=== PATIENT | female | born 1975 | race Caucasian/White ===

== ENCOUNTER → 2022-09-13 10:35 | Outpatient (BNVA) | payer OTHER, MEDICAID, SELFPAY | PROVIDERS: PCP Internal Medicine; Referring Provider Internal Medicine; Visit Provider Physician Assistant Surgical | DX: Z13.89 Encounter for screening for other disorder (principal) ==

== ENCOUNTER → 2022-10-07 11:02 | Outpatient (BNVA) | payer OTHER, MEDICAID, SELFPAY | PROVIDERS: PCP Internal Medicine; Visit Provider Physician Assistant | DX: Z13.89 Encounter for screening for other disorder (principal) ==

== ENCOUNTER 2022-10-07 12:30 | Outpatient (REF) | payer OTHER, MEDICAID, SELFPAY ==
[2022-10-11 12:14] LABS: H Pylori Breath Test Negative (Negative)
== END 2022-10-07 12:31 | disposition home or self-care (01) ==
LOC: HO.LNP 12:30
PROVIDERS: Visit Provider Physician Assistant
DX: E66.01 Morbid (severe) obesity due to excess calories (principal); J45.909 Unspecified asthma, uncomplicated
CPT/HCPCS: 83013

== ENCOUNTER 2022-10-11 08:20 | Outpatient (REF) | payer OTHER, MEDICAID, SELFPAY ==
--- NOTE | ~2022-10-11 | US_ITS ---
EXAMINATION: US COMPLETE ABDOMEN WITH LIVER ELASTOGRAPHY CLINICAL INFORMATION: Obesity COMPARISON: None available. TECHNIQUE: Real-time imaging of the abdominal viscera. Noninvasive ultrasound liver fibrosis assessment is performed using Penny ElastPQ point quantification shear wave elastography (2D-SWE) with a C5-2 MHz transducer. Multiple elastography samples are obtained. FINDINGS: PANCREAS: Normal. ABDOMINAL AORTA: Limited visualization of the mid and aorta. INFERIOR VENA CAVA: Visualized portions are normal. LIVER: Liver echotexture is slightly increased. The liver is normal in size and contour. No focal lesion or intrahepatic biliary duct dilatation. The right lobe measures 15 cm in length. The left lobe measures 11 cm in length. Portal flow is normal/hepatopedal Shear wave liver elastography median stiffness is 2 m/s (reference: normal median stiffness is 1.3 m/s or less). IQR/median stiffness to assess sampling precision is 0.16 (reference: good quality data set is IQR/median stiffness of 0.15 or less). GALLBLADDER: The gallbladder is normal in size. No gallstones. The gallbladder wall appears slightly thickened and echogenic measuring 4 mm. No gallbladder wall edema. No pericholecystic fluid. COMMON BILE DUCT: Normal in caliber measuring 0.4 cm in diameter. RIGHT KIDNEY: Normal. No hydronephrosis. No renal calculi or focal parenchymal lesions. The kidney measures 12.6 cm in maximum dimension. LEFT KIDNEY: Normal. No hydronephrosis. No renal calculi or focal parenchymal lesions. The kidney measures 12.6 cm in maximum dimension. SPLEEN: Surgically removed FREE FLUID: None. US/US abdomen comp w elastography IMPRESSION: 1. Impression: Slightly echogenic liver. Slightly thickened echogenic gallbladder wall. No gallstones. Post splenectomy. Limited visualization of the aorta. 2. Liver elastography: Limited due to sampling error. Increased liver stiffness suggestive of compensated advanced chronic liver disease but need further test for confirmation. REFERENCE: Society of Radiologists in Ultrasound Liver Stiffness Thresholds (2020): LIVER STIFFNESS THRESHOLDS: *Liver Stiffness equal or less than 1.3 m/s: High probability of being normal. *Liver Stiffness less than 1.7 m/s: In the absence of other known clinical signs, rules out compensated advanced chronic liver disease. *Liver Stiffness 1.7-2.1 m/s: Suggestive of compensated advanced chronic liver disease but need further test for confirmation. *Liver Stiffness over 2.1 m/s: Rules in compensated advanced chronic liver disease. *Liver Stiffness over 2.4 m/s: Suggestive of clinically significant portal hypertension. QUALITY OF DATA SET: *IQR/Median value equal or less than 0.15 implies a quality data set. *IQR/Median value over 0.15 implies a poor quality data set. SIGNIFICANT CHANGE FROM PRIOR EXAM: Significant change if liver stiffness measurement is 10% or greater from prior exam. OTHER CONSIDERATIONS: The stage of liver fibrosis may be overestimated in the setting of acute hepatitis, liver inflammation, elevated liver function tests, hepatic vascular congestion, obstructive cholestasis, non-fasting state, and infiltrative diseases such as amyloidosis and lymphoma. In some patients with NAFLD, the liver stiffness thresholds for compensated advanced chronic liver disease may be lower. In causes other than viral hepatitis and NAFLD, liver stiffness thresholds are not well established.
--- NOTE | ~2022-10-11 | XR_ITS ---
EXAMINATION: XR CHEST CLINICAL INFORMATION: Morbid obesity. COMPARISON: None available. TECHNIQUE: 2 views of the chest were obtained. FINDINGS: Mild diffuse nonspecific interstitial prominence. No focal airspace opacity, pleural effusion or pneumothorax. Normal appearance of the cardiomediastinal silhouette. No acute osseous abnormalities. XR/XR chest 2V IMPRESSION: Mild diffuse interstitial thickening could indicate the presence of small airways disease. No focal airspace opacity.
--- NOTE | ~2022-10-11 | FL_ITS ---
EXAMINATION: XR FLUOROSCOPY UPPER GI WITH AIR CLINICAL INFORMATION: Morbid obesity. COMPARISON: None available. TECHNIQUE: Air-contrast upper GI examination. FINDINGS: There is normal apposition of the vocal cords while saying E. There is normal elevation of the soft palate while saying candy. Patient swallowed thin and thick barium and half-inch diameter barium tablet without difficulty. There is no evidence of nasopharyngeal reflux or tracheal aspiration. No persistent esophageal stricture was identified. No mucosal abnormality is seen. No hiatal hernia was present. There was minimal transient gastroesophageal reflux seen during the study. This could not be reproduced with water siphon test. The stomach demonstrates normal distensibility without abnormal mass lesion or ulceration. There was no delay in gastric emptying. The duodenal bulb and sweep appear unremarkable. FLUOROSCOPY TIME: 1.1 minutes. DOSE AREA PRODUCT: 10.093 Gy-cm2 (jansen-centimeter squared). FL/FL upper GI w air IMPRESSION: Essentially normal air contrast upper GI examination.
--- NOTE | 2022-10-11 08:26 | ECG_ITS ---
Test Reason : e66.0 Blood Pressure : / mmHG Vent. Rate : 071 BPM Atrial Rate : 071 BPM P-R Int : 142 ms QRS Dur : 088 ms QT Int : 398 ms P-R-T Axes : 005 058 008 degrees QTc Int : 432 ms Normal sinus rhythm Normal ECG No previous ECGs available Referred By: Martha Mcwilliams Electronically Signed By:JARVIS BERNARDO MD
[2022-10-11 08:51] LABS: MANUAL DIFF FLAG NO
[2022-10-11 09:18] LABS: Basophils Percent Auto 0.4 % (0-2); Eosinophils Absolute Auto 0.2 X10*3/uL (0.0-0.4); Eosinophils Percent Auto 2.1 % (0-4); Hematocrit 41.3 % (37.0-47.0); Hemoglobin 13.8 g/dl (12.0-16.0); Imm Gran Abs Auto 0.02 X10*3/uL (0.00-0.03); Imm Gran Pct Auto 0.3 % (0.0-0.4); Lymphocytes Absolute Auto 2.5 X10*3/uL (1.2-4.9); Lymphocytes Percent Auto 34.7 % (20-40); Mean Corpuscular HGB Conc 33.4 g/dl (31.0-35.0); Mean Corpuscular Hemoglobin 30.6 pg (27.0-33.0); Mean Corpuscular Volume 91.6 fL (80.0-98.0); Mean Platelet Volume 11.2 fL (9.4-12.3); Monocytes Absolute Auto 0.7 X10*3/uL (0.1-1.2); Monocytes Percent Auto 9.7 % (2-11); Neutrophils Absolute Auto 3.8 x10*3/uL (2.0-8.3); Neutrophils Percent Auto 52.8 % (45-73); Platelet Count 311 X10*3/uL (160-400); Red Blood Count 4.51 X10*6/uL (4.20-5.50); Red Cell Distribution Width 13.4 % (11.0-16.0); White Blood Count 7.2 X10*3/uL (4.8-10.8)
[2022-10-11 09:30] LABS: Estimated Average Glucose 111 mg/dL; Hemoglobin A1c % 5.5 %
[2022-10-11 09:39] LABS: Anion Gap 12 (12-20)
[2022-10-11 09:53] LABS: Alanine Aminotransferase 16 U/L (0-31); Alkaline Phosphatase 56 U/L (39-117); Aspartate Amino Transferase 14 U/L (5-31); Bilirubin Total 0.5 mg/dL (0.0-1.0); Blood Urea Nitrogen 19 mg/dL (9-16); C Reactive Protein 0.58 mg/dL (< or = 0.50); Calcium 10.1 mg/dL (8.4-10.2); Carbon Dioxide 24 mmol/L (22-29); Chloride 107 mmol/L (96-108); Cholesterol 201 mg/dL; Estimated Glomerular Filt Rate > 60; Glucose Random 100 mg/dL (60-115); HDL Cholesterol 64 mg/dL; Iron 104 mcg/dL (30-160); LDL Cholesterol Calculated 124 mg/dl; Percent Iron Saturation 31 % (15-50); Potassium 4.6 mmol/L (3.3-5.1); Sodium 138 mmol/L (135-145); Total Iron Binding Capacity 333 mcg/dL (228-428); Total Protein 7.4 g/dL (6.5-8.0); Triglycerides 67 mg/dL; Unsaturated Iron Binding 229 ug/dL
[2022-10-11 10:32] LABS: Ferritin 86 ng/mL (10-250); Folate 9.1 ng/mL (> or = 4.0); Insulin 8 uU/mL (2-29); TSH reflex Free T4 1.82 uIU/mL (0.32-4.0); Vitamin B12 451 pg/mL (200-900); Vitamin D 25-OH Total 18.1 ng/mL (>30)
[2022-10-14 13:23] LABS: PTHI 116 pg/mL (16-77)
[2022-10-16 01:18] LABS: Zinc 74 mcg/dL (60-130)
[2022-10-17 19:58] LABS: Vitamin A 42 mcg/dL (38-98)
[2022-10-18 17:17] LABS: Vitamin B1 11 nmol/L (8-30)
== END 2022-10-11 08:21 | disposition home or self-care (01) ==
LOC: HO.US 08:20
PROVIDERS: PCP Internal Medicine; Visit Provider Physician Assistant
DX: E66.01 Morbid (severe) obesity due to excess calories (principal); J45.909 Unspecified asthma, uncomplicated
CPT/HCPCS: 36415; 71046; 74246; 76705; 76981; 80053; 80061; 82306; 82607; 82728; 82746; 83036; 83525; 83540; 83970; 84425; 84443; 84590; 84630; 85025; 86140; 93005

== ENCOUNTER → 2022-10-28 10:28 | Outpatient (BNVA) | payer OTHER, MEDICAID, SELFPAY | PROVIDERS: PCP Internal Medicine; Visit Provider Physician Assistant | DX: Z13.89 Encounter for screening for other disorder (principal) ==

== ENCOUNTER → 2022-11-08 09:13 | Outpatient (BNVA) | payer OTHER, MEDICAID, SELFPAY | PROVIDERS: PCP Internal Medicine; Visit Provider Dietitian, Registered | DX: E66.01 Morbid (severe) obesity due to excess calories (principal); Z68.43 Body mass index [BMI] 50.0-59.9, adult; Z71.3 Dietary counseling and surveillance | CPT/HCPCS: 97802 ==

== ENCOUNTER → 2022-11-11 10:20 | Outpatient (BNVA) | payer OTHER, MEDICAID, SELFPAY | PROVIDERS: PCP Internal Medicine; Visit Provider Counselor Mental Health ==

== ENCOUNTER → 2022-11-18 11:30 | Outpatient (BNVA) | payer OTHER, MEDICAID, SELFPAY | PROVIDERS: PCP Internal Medicine; Visit Provider Physician Assistant ==

== ENCOUNTER → 2022-12-02 10:00 | Outpatient (BNVA) | payer OTHER, MEDICAID, SELFPAY | PROVIDERS: PCP Internal Medicine; Visit Provider Counselor Mental Health ==

== ENCOUNTER → 2022-12-06 09:00 | Outpatient (BNVA) | payer OTHER, MEDICAID, SELFPAY | PROVIDERS: PCP Internal Medicine; Visit Provider Physician Assistant ==

== ENCOUNTER → 2022-12-17 09:58 | Outpatient (BNVA) | payer OTHER, MEDICAID, SELFPAY | PROVIDERS: PCP Internal Medicine; Visit Provider Surgery ==

== ENCOUNTER 2023-01-06 10:30 | Outpatient (AMB) | payer OTHER, MEDICAID, SELFPAY ==
--- NOTE | 2023-01-06 10:49 | MHC.OFFVISWM ---
Intake VS Expanded 01/06/23 11:00 Height 5 ft 2 in Weight 287 lb 4 oz BMI 52.5 Intake Visit Reasons: VIDEO F/U SWL Allergies azithromycin [From Zithromax Z-Hugh] Adverse Reaction (Intermediate, Verified 12/17/22 10:06) Gastrointestinal Upset HPI HPI Comments History of Present Illness Details SWL follow up, [employer] weight 308.2 lbs. All pre operative workup completed, TBWL isstill 20.4 lbs or 6.6%. CT of abdomen done at [facility] - no evidence for carcinomatosis. Small infraumbillical hernia. No spleen. Meal plan: stooped coffee - drinking coffee/mushroom drink with water and protein shake 8am - shake 11:30 - shake 3:30 - 4 pm - yogurt 7:30 - yesterday - turkey burger and brussel sprouts protein bar after dinner sometimes if eats early. Exercise - 1d LS -2 mile, swims laps in pool and aerobic exercises x 45 minutes PFS Surgical History H/O splenectomy History of back surgery History of delivery Hx of tear of meniscus of knee joint Family History Father Cancer Paternal Grandmother Diabetes Social History Household Members: Spouse and Children Alcohol intake: current Alcohol intake frequency: a few times a week Alcohol type: hard liquor Patient Tobacco Use Status: Never used Tobacco Current occupational status: employed Current occupation: retail Assessment & Plan Assessment & Plan (1) Morbid obesity: Code(s): E66.01 - Morbid (severe) obesity due to excess calories Plan: No further weight loss at todays appt. Discussed that her goal before surgery is to weight around 278lbs. Will increase LS 2 mile videos ot 3-4 per week while continuing pool exercises. Dr Vega in attendance for this appt - CT reviewed with patient. Next appt [address] Vega. Patient is still morbidly obese and is not considered stable at this time. I spent 30 minutes in total speaking with the patient via video conference counseling , reviewing records and charting in patients chart. . Telehealth Telehealth Location of provider rendering services: practice address Location of patient: address on file Patient Identification confirmed using: Name, : No Telehealth method: video Patient verbally consented to treatment: No Patient verbally consented to billing insurance company: No Patient informed of any privacy concerns related to visit: No Coding Level of Care Code Tele Est Pt Level 4 (13548) Diagnoses Morbid obesity E66.01
[2023-01-06 11:00] VITALS: BMI 52.5
== END 2023-01-06 11:13 | disposition home or self-care (01) ==
LOC: HO.HBS 11:11
PROVIDERS: PCP Internal Medicine; Visit Provider Physician Assistant
DX: E66.01 Morbid (severe) obesity due to excess calories (principal); Z68.43 Body mass index [BMI] 50.0-59.9, adult
CPT/HCPCS: 99214

== ENCOUNTER → 2023-01-06 10:30 | Outpatient (BNVA) | payer OTHER, MEDICAID, SELFPAY | PROVIDERS: PCP Internal Medicine; Visit Provider Physician Assistant ==

== ENCOUNTER 2023-01-20 11:15 | Outpatient (AMB) | payer OTHER, MEDICAID, SELFPAY ==
--- NOTE | 2023-01-20 11:28 | A.OFFVIS_ITS ---
Intake VS Expanded 01/20/23 11:35 Height 5 ft 2 in Weight 282 lb 9.6 oz BMI 51.7 BP 137/84 Blood Pressure Location Lt brachial Blood Pressure Position Sitting Pulse 76 Pulse Source Pulse Oximeter Temp 97.1 F Temperature Source Temporal Artery Scan Pulse Oximetry 95 Oxygen Delivery Method Room Air Body Fat 138.8 Body Fat Percentage 49.2 Free Fat Mass 143.6 Muscle Mass 136.2 Visceral Mass 18.0 Water Mass 102.2 BMR 2,056 Intake Visit Reasons: (OV) f/u SWL Casing Running Machine Tender Required: No Marketing Automation Specialist: Marketing Automation Specialist offered & declined Allergies azithromycin [From Zithromax Z-Hugh] Adverse Reaction (Intermediate, Verified 01/20/23 11:29) Gastrointestinal Upset Medication List - Last Reconciled 01/20/23 by Hay Vega MD budesonide-formoterol 80-4.5 mcg/actuation (Symbicort) 2 puffs inhalation Q12H cetirizine (Zyrtec) 10 mg PO DAILY PRN cholecalciferol (vitamin D3) (Vitamin D3) 50 mcg PO DAILY fluticasone propionate 50 mcg/actuation (Flonase Allergy Relief) 1 spray intranasal DAILY montelukast (Singulair) 10 mg PO DAILY HPI HPI Comments History of Present Illness Details The patient is a 47-year-old woman with a lifelong struggle with obesity who entered the surgical weight loss program on October 07, 2022 with a BMI of 56.3/weight of 308 lb. Patient reports some frustration due to poor dietary choices and eating of Swiss food as well as a mud slide drink and notes that she has gained few lb because of these choices. She was tearful and explaining her indiscretion and we discussed learning and how to avoid this in the future. She seems to have new focus. She is congratulated on interval weight loss and presents today at a weight of 282.6 lb/BMI 49.2 representing 26 lb weight loss since entering the program. Her goal for surgery was 278 lbs. The patient does note weekend camping activities, and while she focuses on hydration, she notes that due to activities, she often misses protein shakes. She notes that postoperatively, this will be resolved. Patient reports a past surgical history of splenectomy for trauma around age 8 with the fall/injury from [employer] set. The patient notes that approximately a year ago, she was admitted at [facility] and underwent a CT of the abdomen and pelvis due to severe abdominal pain and dehydration. She relates that the images were alarming to the physicians taking care of her and they noted she has multiple splenules. She does note that they initially reported they were concerned about gastric cancer. 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 Patient had some questions regarding time out of work we discussed the typical need for 1-2 weeks to focus on hydration and protein requirements. GERD 0 ESS 11 JORGE 3 QOL 123 Pre op work up completed as follows: SWL classes -? 02/04 [facility] appts - 11/11?, cleared? ? RD appts? - 11/08, cleared H pylori - negative Labs -done CXR mild diffuse interstitial markings ECG - normal ULS - echogenic liver, no spleen UGI - normal study PFSH Surgical History H/O splenectomy History of back surgery History of delivery Hx of tear of meniscus of knee joint Family History Father Cancer Paternal Grandmother Diabetes Social History Household Members: Spouse and Children Alcohol intake: current Alcohol intake frequency: a few times a week Alcohol type: hard liquor Patient Tobacco Use Status: Never used Tobacco Current occupational status: employed Current occupation: retail Physical Exam On exam, she is nontoxic and in good spirits She is anicteric She is in no acute respiratory distress Her abdomen is obese, soft and nontender Results Reviewed Results Reviewed: labs 10/11/22 Hemoglobin 13.8 with normal indices; white blood cell count 7.2 normal differential; platelet count 311 K Hemoglobin A1c 5.5; BUN 19, creatinine 0.80 CRP elevated at 0.58 LFTs, iron studies, lipids within normal parameters Vitamin D low in supplemented, otherwise multivitamins within normal limits Diagnostic imaging 3CXR interstitial markings possibly consistent with small airway disease Upper GI: No hiatal hernia nor GERD Abdominal U/S NAFLD, CBD 4mm There is report in the EMR of the patient having a CT scan at [facility] that demonstrated a splenic remnant is present in the left upper quadrant following splenectomy I have requested in reviewed the actual images of this CT which demonstrate splenules as well as an incisional hernia, but the spleen is surgically absent I have requested a hard copy of this study to evaluate the patient's altered anatomy since this may affect surgical decision making. Assessment & Plan Assessment & Plan (1) Morbid obesity: Code(s): E66.01 - Morbid (severe) obesity due to excess calories (2) Steatosis of liver: Code(s): K76.0 - Fatty (change of) liver, not elsewhere classified (3) Asthma: Code(s): J45.909 - Unspecified asthma, uncomplicated (4) Binge-eating disorder, mild: Code(s): F50.81 - Binge eating disorder (5) S/P splenectomy: Code(s): Z90.81 - Acquired absence of spleen (6) Splenosis: Code(s): D73.89 - Other diseases of spleen (7) Incisional hernia: Code(s): K43.2 - Incisional hernia without obstruction or gangrene Plan The patient is congratulated on her ongoing weight loss. I believe it is reasonable to submit her to her insurance at this time and expect that her follow-up appointment will be with 1 of the PCPs for the liver shrinking diet, followed by a 45 minute appointment with me to review perioperative and postoperative experience. Using a teaching ward attendant, we reviewed normal physiology, weight gain, the importance of a high-protein/high-fiber low-fat/low-carbohydrate diet to optimize surgical weight loss in the option of continued medical weight loss, bariatric surgery options including laparoscopic sleeve gastrectomy and gastric bypass.? Patient's questions seemed to be satisfactorily answered and she is interested in proceeding with a sleeve gastrectomy.? Typical perioperative and postoperative plan including overnight in the hospital, bowel prep in the importance of hydration and celebrate 4 in 1 shakes was also reviewed. I reviewed the inherent risks of this procedure which include, but are not limited to:? Bleeding that could require another operation or blood transfusion; the inherent risks of transfusions; the risk of mesenteric or deep vein thrombosis of the lower extremities that could cause a fatal pulmonary embolism was reviewed; the patient's prior splenectomy also adds challenge since the splenules may be pedunculated in some may need to be removed or scar tissue in the left upper quadrant may affect operative decisions.? The risk of weight regain if maladaptive eating and sedentary behavior continue was discussed.? The importance of proper diet and increased activity to augment surgical weight loss and the fact that no operation would result in weight loss of poor dietary decisions and sedentary behavior are resumed were discussed at length and apparently understood.? The patient had the option of having a manager medicare marketing present and declined this option. Given the need for lysis of adhesions, I also explained to the patient that she may have additional trocars which would mean more than 5 abdominal incisions, and it is also possible that the vascularized splenules may need to be removed. Further, the possible need for open surgery given her altered anatomy was also reviewed. The patient seemed to have her questions answered and is still interested in proceeding. Will submit to the insurance; I suspect follow-up for liver shrinking diet instruction is forthcoming. The option of addressing her incisional hernia which is infraumbilical at a later date if he becomes symptomatic was discussed and apparently understood. Coding Level of Care Code Est Pt Level 4 (41543) Diagnoses Morbid obesity E66.01 Steatosis of liver K76.0 Asthma J45.909 Binge-eating disorder, mild F50.81 S/P splenectomy Z90.81 Splenosis D73.89 Incisional hernia K43.2
[2023-01-20 11:35] VITALS: BP 137/84; PULSE 76; TEMP 36.2; O2SAT 95; BMI 51.7
== END 2023-01-20 12:38 | disposition home or self-care (01) ==
PROVIDERS: PCP Internal Medicine; Visit Provider Surgery
DX: E66.01 Morbid (severe) obesity due to excess calories (principal); Z68.43 Body mass index [BMI] 50.0-59.9, adult; K76.0 Fatty (change of) liver, not elsewhere classified; J45.909 Unspecified asthma, uncomplicated; F50.81 Binge eating disorder; Z90.81 Acquired absence of spleen; D73.89 Other diseases of spleen; K43.2 Incisional hernia without obstruction or gangrene
CPT/HCPCS: 99214

== ENCOUNTER → 2023-01-20 11:15 | Outpatient (BNVA) | payer OTHER, MEDICAID, SELFPAY | PROVIDERS: PCP Internal Medicine; Visit Provider Surgery ==

== ENCOUNTER → 2023-01-28 07:52 | Outpatient (BNVA) | payer OTHER, MEDICAID, SELFPAY | PROVIDERS: PCP Internal Medicine; Visit Provider Surgery ==

== ENCOUNTER 2023-01-29 16:15 | Outpatient (AMB) | payer OTHER, MEDICAID, SELFPAY ==
--- NOTE | 2023-01-29 15:17 | MHC.OFFVISWM ---
Intake Intake Visit Reasons: VIDEO Pre Op LSG 02/19/23 Allergies azithromycin [From Zithromax Z-Hugh] Adverse Reaction (Intermediate, Verified 01/20/23 11:29) Gastrointestinal Upset Medication List - Last Reconciled 01/29/23 by Martha Mcwilliams PA-C budesonide-formoterol 80-4.5 mcg/actuation (Symbicort) 2 puffs inhalation Q12H cetirizine (Zyrtec) 10 mg PO DAILY PRN cholecalciferol (vitamin D3) (Vitamin D3) 50 mcg PO DAILY fluticasone propionate 50 mcg/actuation (Flonase Allergy Relief) 1 spray intranasal DAILY montelukast (Singulair) 10 mg PO DAILY HPI HPI Comments History of Present Illness Details SWL patient will have LSG with Dr Vega on 02/19/23. Pre op class yesterday. Pre op appointment on 02/10. Coffee - 1 cup per day now is weaning off- will start decaf substitution tomorrow. Meal plan now: 9am - shake' 12:30 - yogurt/bar or shake 4pm - yogurt/bar or shake 7:30- dinner May have another shake or bar after dinner. Exercise - 2 mile videos 3d/ wk. Swim laps in her background pool and water exercises. PFSH Surgical History H/O splenectomy History of back surgery History of delivery Hx of tear of meniscus of knee joint Family History Father Cancer Paternal Grandmother Diabetes Social History Household Members: Spouse and Children Alcohol intake: current Alcohol intake frequency: a few times a week Alcohol type: hard liquor Patient Tobacco Use Status: Never used Tobacco Current occupational status: employed Current occupation: retail Assessment & Plan Assessment & Plan (1) Morbid obesity: Code(s): E66.01 - Morbid (severe) obesity due to excess calories Plan: I reviewed her pre op liquid diet with her and have emailed her the paperwork. Exercise - increase to LS videos 4d/ wk and continue water exercise. Meal plan: 9am - shake 12:30 - yogurt 4pm - shake 7pm - shake 9pm - shake Patient told she can also use Isopure Infusion protien water during the day. Patient is still morbidly obese and is not considered stable at this time. I spent 25 minutes in total speaking with the patient via video conference counseling , reviewing records and charting in patients chart. . Telehealth Telehealth Location of provider rendering services: practice address Location of patient: address on file Patient Identification confirmed using: Name, : Yes Telehealth method: video Patient verbally consented to treatment: Yes Patient verbally consented to billing insurance company: Yes Patient informed of any privacy concerns related to visit: Yes Coding Level of Care Code Tele Est Pt Level 4 (95882) Diagnoses Morbid obesity E66.01
== END 2023-01-29 16:15 | disposition home or self-care (01) ==
LOC: HO.HBS 16:15
PROVIDERS: PCP Internal Medicine; Visit Provider Physician Assistant
DX: E66.01 Morbid (severe) obesity due to excess calories (principal); Z68.43 Body mass index [BMI] 50.0-59.9, adult
CPT/HCPCS: 99213

== ENCOUNTER → 2023-01-29 16:15 | Outpatient (BNVA) | payer OTHER, MEDICAID, SELFPAY | PROVIDERS: PCP Internal Medicine; Visit Provider Physician Assistant | DX: E66.01 Morbid (severe) obesity due to excess calories (principal) ==

== ENCOUNTER → 2023-02-10 09:53 | Outpatient (BNVA) | payer OTHER, MEDICAID, SELFPAY | PROVIDERS: PCP Internal Medicine; Visit Provider Surgery ==

== ENCOUNTER 2023-02-14 07:54 | Outpatient (REF) | payer OTHER, MEDICAID, SELFPAY ==
[2023-02-14 08:20] LABS: MANUAL DIFF FLAG NO
[2023-02-14 09:09] LABS: Basophils Percent Auto 0.3 % (0-2); Eosinophils Absolute Auto 0.2 X10*3/uL (0.0-0.4); Eosinophils Percent Auto 2.3 % (0-4); Hematocrit 42.8 % (37.0-47.0); Hemoglobin 14.5 g/dl (12.0-16.0); Imm Gran Abs Auto 0.01 X10*3/uL (0.00-0.03); Imm Gran Pct Auto 0.2 % (0.0-0.4); Lymphocytes Absolute Auto 2.3 X10*3/uL (1.2-4.9); Mean Corpuscular HGB Conc 33.9 g/dl (31.0-35.0); Mean Corpuscular Hemoglobin 30.6 pg (27.0-33.0); Mean Corpuscular Volume 90.3 fL (80.0-98.0); Mean Platelet Volume 12.2 fL (9.4-12.3); Monocytes Absolute Auto 0.8 X10*3/uL (0.1-1.2); Monocytes Percent Auto 11.3 % (2-11); Neutrophils Absolute Auto 3.5 x10*3/uL (2.0-8.3); Neutrophils Percent Auto 51.9 % (45-73); Platelet Count 327 X10*3/uL (160-400); Red Blood Count 4.74 X10*6/uL (4.20-5.50); Red Cell Distribution Width 13.2 % (11.0-16.0); White Blood Count 6.6 X10*3/uL (4.8-10.8)
[2023-02-14 09:14] LABS: Prothrombin Time 12.3 SEC (11.1-13.3)
[2023-02-14 09:16] LABS: Estimated Average Glucose 103 mg/dL; Hemoglobin A1c % 5.2 %
[2023-02-14 09:17] LABS: Partial Thromboplastin Time 35.7 SEC (26.0-36.4)
[2023-02-14 09:40] LABS: Alanine Aminotransferase 14 U/L (0-31); Alkaline Phosphatase 51 U/L (39-117); Anion Gap 9 (12-20); Aspartate Amino Transferase 16 U/L (5-31); Bilirubin Total 0.4 mg/dL (0.0-1.0); Blood Urea Nitrogen 18 mg/dL (9-16); C Reactive Protein 0.71 mg/dL (< or = 0.50); Calcium 10.8 mg/dL (8.4-10.2); Carbon Dioxide 28 mmol/L (22-29); Chloride 107 mmol/L (96-108); Cholesterol 135 mg/dL; Estimated Glomerular Filt Rate > 60; Glucose Random 93 mg/dL (60-115); HDL Cholesterol 40 mg/dL; Iron 87 mcg/dL (30-160); LDL Cholesterol Calculated 84 mg/dl; Percent Iron Saturation 30 % (15-50); Potassium 4.3 mmol/L (3.3-5.1); Sodium 140 mmol/L (135-145); Total Iron Binding Capacity 290 mcg/dL (228-428); Triglycerides 59 mg/dL; Unsaturated Iron Binding 203 ug/dL
[2023-02-14 10:00] LABS: Vitamin B12 834 pg/mL (200-900)
[2023-02-14 10:01] LABS: Ferritin 112 ng/mL (10-250); TSH reflex Free T4 1.91 uIU/mL (0.32-4.0); Vitamin D 25-OH Total 35.1 ng/mL (>30)
[2023-02-17 15:29] LABS: Calcium (PTHI) 10.7 mg/dL (8.6-10.2); PTHI 58 pg/mL (16-77)
[2023-02-18 16:05] LABS: Zinc 81 mcg/dL (60-130)
[2023-02-19 22:33] LABS: Vitamin A 27 mcg/dL (38-98)
[2023-02-20 14:22] LABS: Vitamin B1 10 nmol/L (8-30)
== END 2023-02-14 07:55 | disposition home or self-care (01) ==
LOC: HO.LAB 07:54
PROVIDERS: PCP Internal Medicine; Visit Provider Surgery
DX: D73.89 Other diseases of spleen (principal); E66.01 Morbid (severe) obesity due to excess calories; J45.909 Unspecified asthma, uncomplicated; K43.2 Incisional hernia without obstruction or gangrene; K76.0 Fatty (change of) liver, not elsewhere classified; Z90.81 Acquired absence of spleen
CPT/HCPCS: 36415; 80053; 80061; 82306; 82607; 82728; 83036; 83540; 83970; 84425; 84443; 84590; 84630; 85025; 85610; 85730; 86140

== ENCOUNTER 2023-02-19 06:06 | Inpatient (IN) | payer OTHER, MEDICAID, SELFPAY ==
[2023-02-10 13:17] VITALS: BMI 49.9
--- NOTE | 2023-02-18 09:28 | P.CONAN_ITS ---
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 PMFSH Active Problems Active Problems: All Active Problems (Updated 02/10/23 @ 13:11 by Marika Bronson RN) Morbid obesity (Acute) Asthma (Acute) Steatosis of liver (Acute) Binge-eating disorder, mild (Acute) S/P splenectomy (Acute) Splenosis (Acute) Incisional hernia (Acute) Past Medical History Medical History Arthritis Asthma Binge-eating disorder, mild Steatosis, liver Family History Family History Father Cancer Paternal Grandmother Diabetes Surgical History Surgical History (Updated 02/19/23 @ 15:38 by Hay Vega MD) H/O splenectomy History of back surgery History of delivery Hx of tear of meniscus of knee joint Social History Social History Household Members: Spouse Housing: House Are you a primary healthcare corporate account director to a significant other at home: Yes Do you presently have visiting nurse or other home services: No Alcohol intake: current Alcohol intake frequency: holidays/special occasions only Alcohol type: hard liquor Patient Tobacco Use Status: Never used Tobacco Use of substances other than those prescribed or required for medical reasons: No Currently Displaying Signs/Symptoms of Drug Intoxication Withdrawal: No Have you been hit, kicked, punched, or otherwise hurt by someone within the past year? If so, by whom?: No Do you feel safe in your current relationship?: Yes Is there a partner from a previous relationship who is making you feel unsafe now?: No Are you DNR?: No Advance Directives: No Advance Directives Information Provided: Yes Advance Directives on File: No Do you have thoughts of harming others: None Do you have a plan to hurt others: No Plan Recently lost weight without trying: No Eating poorly because of decreased appetite: No Nutrition Risks: No Nutritional Risk Patient : No : No Poor oral hygiene: No Current occupational status: employed Current occupation: [employer]OUND[employer] Meds Allergies Allergy/AdvReac Type Severity Reaction Status Date / Time azithromycin AdvReac Intermediate Gastrointestinal Verified 02/19/23 06:14 [From Zithromax Z-Hugh] Upset Home Medications Medication Instructions Recorded Confirmed Last Taken Type budesonide-formoterol HFA 80 2 puff inhalation Q12H 09/13/22 02/19/23 02/14/23 History mcg-4.5 mcg/actuation aerosol inhaler (Symbicort) cetirizine 10 mg capsule (Zyrtec) 10 mg PO DAILY PRN Allergy Symptoms 09/13/22 02/10/23 Unknown History fluticasone propionate 50 1 spray intranasal DAILY PRN 09/13/22 02/10/23 Unknown History mcg/actuation nasal Allergy Symptoms spray,suspension (Flonase Allergy Relief) montelukast 10 mg tablet 10 mg PO DAILY 09/13/22 02/10/23 Unknown History (Ruperto) Exam Exam Date and Time: February 18, 2023 0928 Height,Weight and Vital Signs: Height 5 ft 2 in Weight 123.831 kg Pertinent Lab Results Pertinent Lab Results: Laboratory Tests 02/14/23 08:10 Blood Type A Positive Antibody Screen NEGATIVE Laboratory Tests 02/14/23 02/14/23 08:10 08:10 WBC 6.6 Hgb 14.5 Hct 42.8 Plt Count 327 Sodium 140 Potassium 4.3 Chloride 107 Carbon Dioxide 28 BUN 18 H Creatinine 0.68 Narrative Narrative: EKG 09/2022 Vent. Rate : 071 BPM ? ? Atrial Rate : 071 BPM ?? P-R Int : 142 ms? QRS Dur : 088 ms ? ? QT Int : 398 ms ? ? ? P-R-T Axes : 005 058 008 degrees ?? QTc Int : 432 ms ? Normal sinus rhythm Normal ECG No previous ECGs available Assessment and Plan Assessment Anesthesia Assessment: Chart Reviewed Documented by User: Ben Moseley MD 02/19/23 17:37 [facility] [place] Past Medical History Medical History Arthritis Asthma Binge-eating disorder, mild Steatosis, liver Functional capacity: independent ambulation Family History Family History Father Cancer Paternal Grandmother Diabetes Family history of problems with anesthesia: No Surgical History Surgical History (Updated 02/19/23 @ 15:38 by Hay Vega MD) H/O splenectomy History of back surgery History of delivery Hx of tear of meniscus of knee joint History of Problems with Anesthesia: No Social History Social History Household Members: Spouse Housing: House Are you a primary healthcare corporate account director to a significant other at home: Yes Do you presently have visiting nurse or other home services: No Alcohol intake: current Alcohol intake frequency: holidays/special occasions only Alcohol type: hard liquor Patient Tobacco Use Status: Never used Tobacco Use of substances other than those prescribed or required for medical reasons: No Currently Displaying Signs/Symptoms of Drug Intoxication Withdrawal: No Have you been hit, kicked, punched, or otherwise hurt by someone within the past year? If so, by whom?: No Do you feel safe in your current relationship?: Yes Is there a partner from a previous relationship who is making you feel unsafe now?: No Are you DNR?: No Advance Directives: No Advance Directives Information Provided: Yes Advance Directives on File: No Do you have thoughts of harming others: None Do you have a plan to hurt others: No Plan Recently lost weight without trying: No Eating poorly because of decreased appetite: No Nutrition Risks: No Nutritional Risk Patient : No : No Poor oral hygiene: No Current occupational status: employed Current occupation: retail Meds Allergies Allergy/AdvReac Type Severity Reaction Status Date / Time azithromycin AdvReac Intermediate Gastrointestinal Verified 02/19/23 06:14 [From Zithromax Z-Hugh] Upset Home Medications Medication Instructions Recorded Confirmed Last Taken Type budesonide-formoterol HFA 80 2 puff inhalation Q12H 09/13/22 02/19/23 02/14/23 History mcg-4.5 mcg/actuation aerosol inhaler (Symbicort) cetirizine 10 mg capsule (Zyrtec) 10 mg PO DAILY PRN Allergy Symptoms 09/13/22 02/10/23 Unknown History fluticasone propionate 50 1 spray intranasal DAILY PRN 09/13/22 02/10/23 Unknown History mcg/actuation nasal Allergy Symptoms spray,suspension (Flonase Allergy Relief) montelukast 10 mg tablet 10 mg PO DAILY 09/13/22 02/10/23 Unknown History (Singulair) Exam Airway Mallampati Class: III TM Dist: >3cm Loose/Missing/Broken Teeth: Yes Assessment and Plan Assessment Anesthesia Assessment: Anesthesia Plan Discussed Final Anesthetic Review Family History of Problems with Anesthesia: No History of Problems with Anesthesia: No NPO: Yes ASA Class: III Final Preanesthetic Review: Meds/Allgs Chart Reviewed, Consent Obtained/Reviewed and Anes Risks/Benef Reviewed Patient Risk: Intermediate Procedure Risk: Intermediate Anesthetic Plan Anesthetic Plan: GA Disposition: Standard PACU
[2023-02-19] VITALS (10 sets, daily range): BP systolic 111–151; BP diastolic 68–90; PULSE 68–82; RESP 14–20; TEMP 36–36.5; O2SAT 92–95
[2023-02-19 06:23] LABS: UPreg QC Valid YES; Urine Pregnancy NEGATIVE (NEGATIVE)
--- NOTE | 2023-02-19 06:43 | P.OP_ITS ---
Operative Note Operative Note Date of Service: 02/19/23 Narrative: Preop diagnosis: [Obesity, presenting BMI 56.3/308lbs, NAFLD, s/p pediatric splenectomy for trauma with splenosis] Postop diagnosis: [Same, hepatomegaly, intra-abdominal adhesions post splenectomy, splenosis, no evidence of hiatal hernia] Procedure: [Laparoscopic sleeve gastrectomy, gastropexy, lysis of adhesions, intraoperative upper endoscopy] Surgeon: Hay Vega MD Assist: [Compa Hazel PA-C] Anesthesia: [GET, local: Ropivicaine, 0.5% with epi] Estimated blood loss: [10cc] Specimen: [Portion of stomach with fundus] Intraoperative findings: [No evidence of a hiatal hernia, hepatomegaly was present . Intra-abdominal adhesions from the omentum to the anterior abdominal wall and splenosis involving the omentum an anterolateral] Indications: [The patient is a 47-year-old woman with a lifelong struggle with obesity who entered the surgical weight loss program on October 07, 2022 with a BMI of 56.3/weight of 308 lb.? She is status post splenectomy as a child for traumatic injury and presented with a comorbidity of NAFLD. She had failed numerous medical management options previously and, after discussion/Education and demonstration of healthy lifestyle changes including diet and exercise, the patient demonstrated weight loss to 275/BMI 50.4. Options of ongoing medical treatment verses laparoscopic sleeve gastrectomy or other bariatric operation were discussed and the patient's questions answered. The patient seemed understand her options and wanted to proceed with a laparoscopic sleeve gastrectomy, possible hiatal hernia repair, intraoperative upper endoscopy and possible ventral hernia repair. I reviewed the inherent risks of this procedure which include, but are not limited to: Bleeding that could require another operation or blood transfusion; the inherent risks of transfusion reaction infectious disease from blood transfusions; the risk of staple line leaks that could cause sepsis, multi-system organ failure and ; the risk of mesenteric or deep vein thrombosis of the lower extremities that could cause a fatal pulmonary embolism was reviewed; the risk of GERD that could require conversion to gastric bypass was discussed; the risk of recurrent hiatal hernia, especially in the setting of weight regain was reviewed. The risk of weight regain if maladaptive eating and sedentary behavior continue was discussed. The importance of proper diet and increased activity to augment surgical weight loss and the fact that no operation would result in weight loss of poor dietary decisions and sedentary behavior are resumed were discussed at length and apparently understood. I also discussed the likely need for lysis of adhesions given her prior splenectomy and the possible need to extract any devascularized splenules and her questions seemed to be satisfactorily answered. ] Procedure: [The patient was identified in the preoperative holding area by myself and again in the operating suite by myself and the OR team. Patient was placed supine on the operating table. Safety straps were utilized and a footboard utilized. The patient was induced in general endotracheal anesthesia administered with excellent effect. An appropriate time-out was performed. The patient's abdomen was then widely prepped and draped in the usual manner for surgery using chlorprep. Antibiotics per protocol were administered by Anesthesia. After infiltrating preemptive local in the skin and subcutaneous tissues in the left upper quadrant, a stab incision was made sharply in the left subcostal abdomen and the Veress needle inserted without incident. An appropriate drop test was performed then a pneumoperitoneum of 15 mmHg was obtained using carbon dioxide. Opening pressures were 8 mmHg. Next, a 5 mm 0 degree scope over a 5 mm Optiview trocar was used to access the abdomen via the patient's right anterior axillary line at the level of the umbilicus because of the prior laparotomy scar. Once the abdomen was entered, the the trocar obturator was removed and the laparoscope was used to confirm there was no injury from the Veress needle nor trocar insertion injury to the bowel or mesentery, then the scope was switched to a 5 mm 45 degree laparoscope. Adhesions from the omentum to the midline scar were noted in addition to some splenic implants both in the right lower quadrant of the abdomen and mesentery. An additional 5 mm right subcostal trocar was placed with preemptive analgesia and laparoscopic vision to allow it lysis of adhesions which had at 31 minutes to the case. Next, using preemptive local, additional 5 mm trocars were placed under direct laparoscopic vision on the patient's left abdomen, then right and the 5 mm midline trocar upsized to a 12 mm to accommodate the stapler. The patient was then positioned in reverse Trendelenburg and the liver retractor deployed through the right lateral 5 mm trocar and secured. A 40 [place] ViSiGi bougie was inserted by Anesthesia per os and advanced to the stomach to decompress. It was then withdrawn to the GE junction all under direct laparoscopic vision. Dissection was begun along the greater curvature using the 5 mm [place] LigaSure for hemostasis and continued to the left sherie of the diaphragm. Dissection was then carried towards the pylorus to 3-4 cm from the pylorus and retro gastric adhesions lysed. The gastroesophageal fat pad was carefully mobilized taking care to avoid injury to the esophagus and stomach and dissection carried towards the short gastrics taking care to avoid injury to the spleen and splenic artery. The diaphragmatic hiatus was carefully examined for a hernia, and no apparent hernia was appreciated. Next, the 40 Fr ViSiGi bougie was advanced by anesthesia under direct vision and laparoscopic guidance and positioned in the antrum approximately 3 cm from the pylorus using laparoscopic graspers to serve as a guide for a stapled sleeve gastrectomy. Stapling was performed with [employer]-CADEN power stapler with a purple 45 and then purple 45 and 60 loads. The bougie served as a guide to maintain the same sleeve caliber to avoid stricture & sleeve distortion. The 10 mm clip manager net was used to apply additional clips to the staple line. Care was taken to be sure that the sleeve laid flat and was without stricture. Once the sleeve was complete, the portion of stomach was placed in the lower abdomen to be sent for removal and permanent section. The staple line, gastrocolic omentum, spleen and short gastric areas were all inspected for hemostasis which was found to be good. Next, the bougie was withdrawn under laparoscopic vision used to suction the esophagus and hypopharynx and then discarded. After inspecting again for hemostasis, a gastropexy was performed using 2-0 Polysorb suture to secure the sleeve gastrectomy to the gastrocolic omentum. There was some bleeding from the suture towards the antrum placed during the gastropexy which required an additional 2 0 Vicryl [id number] for hemostasis. Next, I broke scrub perform an on-table upper endoscopy to assess the sleeve and the esophagus and stomach. The patient was returned to neutral position and the Olympus 160 gastroscope was advanced taking care to preserve the endotracheal tube. The esophagus was intubated without incident. Minimal air was insufflated and the scope advanced into the newly formed sleeve. The staple line was inspected for hemostasis and the morphology of the sleeve appeared straight with a uniform diameter. Intraoperatively, there was no evidence of staple line leak seen during laparoscopy as air was insufflated via endoscope. The scope was then used to aspirate the air from the sleeve withdrawn and removed. I then rescrubbed to return to the operative field and again inspected the field for hemostasis. After final assessment for hemostasis, the patient was returned to neutral position, a Daam used to withdraw the resected gastric specimen which was sent for permanent section. The fascia of the 12 mm midline was closed using an 0 Polysorb figure of 8 on a suture passer under direct laparoscopic vision. The abdomen was then deflated and all trocars removed. The suture was then tied and the skin closed with 4-0 Monocryl subcuticular sutures. The abdomen was then washed and dried, benzoin and Steri-Strips applied followed by Tegaderms. The patient tolerated the procedure well was then extubated the recover in stable condition. All sponge needle and instrument counts were correct x2. At the patient's request, I contacted her Joby Gonzalez by telephone at [phone] to review the operation and typical perioperative and postoperative plan. His questions seemed to be satisfactorily answered.]
--- NOTE | 2023-02-19 06:43 | MHC.SHP ---
Pre-Procedural Eval Section A Date of Service: 02/19/23 The patient is an INPATIENT: Yes The History & Physical has been completed within 30 days and I have reviewed it.: Yes Section B Chief Complaint: OBESITY Allergies: Allergies Allergy/AdvReac Type Severity Reaction Status Date / Time azithromycin AdvReac Intermediate Gastrointestinal Verified 02/19/23 06:14 [From Zithromax Z-Hugh] Upset Plan I have reviewed the history and physical and performed a pertinent physical examination on my patient. No changes have occurred unless specified. Time Spent With Patient Time: Total time managing care of this patient today ____ minutes.
[2023-02-19] MEDS: Aprepitant 32 MG/4.4 ML VIAL IVPUSH (06:45)
[2023-02-19] MEDS: Lactated Ringers 1,000 ML 150 ML IVCONT (06:48)
--- NOTE | 2023-02-19 07:21 | PHA.MEDREC ---
Pharmacy Consult ? Medication Reconciliation Pharmacy has completed the medication reconciliation. cOMPLETED BY RN AND REVIEWED BY [facility]
--- NOTE | 2023-02-19 10:42 | P.DS_ITS ---
DS: Providers Provider Date of Service: 02/20/23 Date of admission: 02/19/23 06:06 Primary care physician: Ayad Tony MD DS: Summary Hospital Course Hospital Course: ADMITTING DIAGNOSIS: morbid obesity, asthma ? DISCHARGE DIAGNOSIS: same, s/p laparoscopic sleeve gastrectomy and lysis of adhesions ? PAST SURGICAL HISTORY: splenectomy, back surgery ? PROCEDURE: upper endoscopy, laparoscopic sleeve gastrectomy and lysis of adhesions ? DISCHARGE SUMMARY: ? History of Present Illness: ? The patient is a?47 year-old woman with a BMI of?56.3 kg/m2 and associated co- morbidities as described above. The patient had extensive work-up,lost?35.7 lbs preoperatively and was electively scheduled for laparoscopic, possible open sleeve gastrectomy and gastropexy. Risks and complications of the surgery were discussed with the patient in advance, particularly the possibility of , pulmonary embolism, anastomotic leak, bleeding, bowel injury, GERD, cardiac, renal or pulmonary complications. The patient understood all the risks and was in agreement with the surgical plan. ? Hospital Course: ? The patient underwent an uneventful laparoscopic sleeve gastrectomy with gastropexy and lysis of adhesions on the day of admission. Postoperatively, the patient was transferred to the surgical floor. The patient received IV Acetaminophen and IV dilaudid for pain control. Patient was started on bariatric phase 1 diet POD #0. On postoperative day one, the patient was feeling well without nausea, vomiting, fevers, or tachycardia. The patient had some mild incisional pain and the abdomen was soft. ? On the morning of postoperative day one, the patient was continued on 1 ounce of water or ice every half hour. During the day, the patient did fairly well, having some incisional pain, but able to ambulate adequately and to tolerate liquids well. ? Since the patient is doing well, we decided that the patient was ready to be discharged. The patient was given instructions to follow-up with me next week and to call my office for any fever over 101, persistent abdominal pain, nausea, vomiting, GERD, symptoms of DVT such as calf tenderness, or leg swelling, or pulmonary embolism such as chest pain or shortness of breath. The patient was also instructed to drink 40-60 ounces of liquids per day using the 1-ounce cups. The patient had been given prescriptions for Tylenol for pain, Zofran prn for nausea, and pantoprazole and carafate previously. The patient was encouraged to ambulate and use the incentive spirometer. The patient was allowed to shower, but no baths, and encouraged to stay active at home. All of these instructions were given to the patient personally. All questions were answered and the patient understood all instructions, the instructions were also given to the patient in print. Time Spent with Patient Time attestation: Total time managing care of this patient today ____ minutes. Discharge coordination time: Less than 30 minutes Quality: Safe Use of Opioids Does Pt have an Active Cancer Diagnosis on the Problem List?: No Quality: Stroke Does the patient have a stroke diagnosis?: No Physical Exam Vital Signs: Vital Signs: Last Vital Signs Temp 96.9 F 02/19/23 06:27 Pulse 72 02/19/23 06:27 Resp 16 02/19/23 06:27 BP 111/68 02/19/23 06:27 Pulse Ox 95 02/19/23 06:27 O2 Del Method Room Air 02/19/23 06:27 BMI result Body Mass Index 49.9 DS: Data Data Completed and Pending Pending studies at discharge: Pending at discharge 02/19/23 09:41 Surgical [PTH] Routine Labs on day of discharge: Laboratory Results - last 24 hr 02/19/23 06:15 Urine Test NEGATIVE Discharge Plan Discharge Anticipated Discharge Date/Time: 02/20/23 10:00 Patient Disposition: Home, Self-Care Discharge Diagnosis: s/p laparoscopic sleeve gastrectomy Referrals: Ayad Tony MD [Primary Care Provider] - 1 Week Discharge Medications: Continued montelukast [Singulair] 10 mg tablet 10 mg PO DAILY budesonide-formoterol [Symbicort] 80-4.5 mcg/actuation HFA aerosol inhaler 2 puff inhalation Q12H fluticasone propionate [Flonase Allergy Relief] 50 mcg/actuation spray,suspension 1 spray intranasal DAILY PRN (Reason: Allergy Symptoms) Rx Instructions: administer into each nostril Zyrtec 10 mg capsule 10 mg PO DAILY PRN (Reason: Allergy Symptoms) ondansetron HCl 4 mg tablet 4 mg PO Q6H PRN (Reason: nausea and vomiting) Qty: 20 0RF pantoprazole 40 mg tablet,delayed release (DR/EC) 40 mg PO QAM 30 Days Qty: 30 2RF sucralfate 100 mg/mL suspension 10 ml PO BID 30 Days Qty: 600 2RF acetaminophen 500 mg/15 mL liquid 500 mg PO Q6H PRN (Reason: fever or pain) Qty: 237 2RF Discontinued cholecalciferol (vitamin D3) [Vitamin D3] 50 mcg (2,000 unit) capsule 50 mcg PO DAILY Qty: 90 1RF Discharge Orders: Discharge Order (Routine); Ordered 02/20/23 Ordered By: Compa Hazel Activity on Discharge: No heavy lifting Stand Alone Forms: Patient Portal Discharge page Care Plan Goals: weight loss Health Concerns: morbid obesity Plan of Treatment: No tub baths, sex or returning to work until discussed at first post op appointment. No exercise, alcohol, tobacco or illegal drug use. Continue to use incentive spirometer hourly while awake. Walk in home for 5- 10 minutes every 2 hours during the first week. Follow all instructions in the bariatric handbook and call with any questions.Discharge Instructions 1. Please call your doctor or come back to the emergency room should any new symptoms arise. 2. You will receive a courtesy call from [facility] 24-48 hours after discharge. 3. Activity: abstain from alcohol, practice limited stair climbing, no bending, no driving, no exercise, no illicit substances, no lifting, no sex, no tub bath, no work. 4. Diet: continue as discussed with Dr. Vega. 5. Dressing Change/Wound Care: Your incision is covered by clear bandages and guaze underneath. If the area is tender, you may apply an ice pack for short intervals (no more than 20 minutes on, followed by at least 20 minutes off). Do not apply heat. Do not use creams, lotions, or topical antibiotics unless instructed to do so by your surgeon. These can cause infection or allergic reaction. 6. Call your doctor if: - Your temperature exceeds 101.5 F - You experience excessive pain or swelling - You have an unexpected reaction to medication - You have excessive bleeding - You experience continued vomiting/nausea - Your incision begins to separate - Your incision shows signs of infection such as increased redness, swelling, excessive pain, heat, or drainage (light blood or clear fluid is normal) 7. General instructions: No lifting greater than 5 lbs for the next 4 weeks. No driving within 24 hours of taking narcotic pain medications. If you do not move your bowels in the next 2 days, please take milk of magnesia over the counter. Please follow the post op diet and do not advance your diet until you are seen in the office in about 2 weeks. Please walk around your home every hour or two to prevent blood clots from forming in your legs. You do not need to wake from sleeping to walk. Please sleep in a bed or couch to prevent kinking at the hips and knees. Please take your incentive spirometer (your lung cheerleading coach) home with you and use it for the next few days to prevent pneumonias. You may shower, no hot tubs, baths or swimming pools. Please call the office with any questions or concerns such as increasing abdominal pain, fever, chills, shortness of breath, chest pain, leg pain or swelling, or redness or drainage from your incisions. Please stay on stage 3 diet which includes sugar free clear liquids such as ice pops and jello and broth and crystal light. Avoid all carbonation. Please drink 3 protein shakes with at least 25-30 grams of protein daily or 3 of the Celebrate 4:1 shakes which can be purchased in our office. The Celebrate shakes have all of the bariatric vitamins you need if you consume these shakes. If you are drinking other protein shakes, you will need to purchase the Celebrate multivitamins and calcium that we provide in the office (they will provide all the vitamins you need). Please make sure you are consuming at least 40-60 ounces of water in addition to your 3 protein shakes daily. Do not hesitate to contact the office with any questions at . The patient's medical history has been reviewed and they are considered low risk for post op DVT and therefore DVT prophylaxis is not considered necessary. Travel after surgery was reviewed. The patient has not disclosed any travel plans during the first 30 days after surgery and they have been advised that within the first 30 days after surgery any bus, plane, train or car travel over 2 hours in duration is contraindicated due to the possibility of developing blood clots from immobility. Any travel, needs to include periods of ambulation of 10 minutes in duration every 2 hours.? The patient was instructed to discuss any plans for travel during this period with their bariatric surgeon. Assessment: stable s/p laparoscopic sleeve gastrectomy
[2023-02-19 11:39] LABS: Hematocrit 41.6 % (37.0-47.0); Hemoglobin 13.7 g/dl (12.0-16.0)
[2023-02-19 11:46] LABS: Anion Gap 11 (12-20); Blood Urea Nitrogen 16 mg/dL (9-16); Calcium 10.5 mg/dL (8.4-10.2); Carbon Dioxide 22 mmol/L (22-29); Chloride 107 mmol/L (96-108); Creatinine Clr Calc Pharmacy 126.6; Estimated Glomerular Filt Rate > 60; Glucose Random 172 mg/dL (60-115); Sodium 136 mmol/L (135-145)
[2023-02-19] MEDS: Lactated Ringers 1,000 ML 100 ML IVCONT ×2 (12:04→21:16)
[2023-02-19] MEDS: Metoclopramide HCl 10 MG/2 ML VIAL IVPUSH (12:10)
--- NOTE | 2023-02-19 12:33 | PM.PNGS ---
Subjective Subjective Date of Service: 02/19/23 Patient reports: still having pain and nausea Interval history: The patient is seen postop from laparoscopic sleeve gastrectomy with gastropexy and lysis of adhesions. Was she is awake and joking with her best friend in , she notes that she is having issues with nausea and asked for an emesis bag. She does not admit to any emesis at this point but also noted that she is kind of groggy and that she does not remember. She denies difficulty breathing, shortness of breath. She did tolerate a few sips of water with no regurgitation. Physical Exam Vital Signs: Vital Signs: Last Vital Signs Temp 97 F 02/19/23 11:25 Pulse 72 02/19/23 11:25 Resp 16 02/19/23 11:25 BP 145/83 H 02/19/23 11:25 Pulse Ox 93 02/19/23 11:25 O2 Del Method Nasal Cannula 02/19/23 11:25 O2 Flow Rate 3 02/19/23 11:25 BMI result Body Mass Index 49.9 She is nontoxic She is in good spirits Appropriate incisional tenderness is noted on the abdomen Objective Data Active Medications Albuterol Sulfate (Albuterol Sulfate (0.083%) 2.5 Mg/3 Ml Vial.Neb) 2.5 mg INHALE ONCE PRN PRN Reason: Shortness of Breath/Wheezing Famotidine (Famotidine/Pf 20 Mg/2 Ml Vial) 20 mg IVPUSH BID JOHN Fentanyl (Fentanyl Citrate/Pf 100 Mcg/2 Ml Vial) 25 mcg IVPUSH Q5M PRN; Protocol PRN Reason: Pain, Moderate(Pain Scale 4-6) Fluticasone/Vilanterol (Fluticasone/Vilanterol 100/25 Blst.W.Dev) 1 puff INHALE RDAILY JOHN Hydromorphone HCl (Hydromorphone Hcl 0.5 Mg/0.5 Ml Syringe) 0.25 mg IVPUSH Q5M PRN; Protocol PRN Reason: Pain, Severe (Pain Scale 7-10) Hydromorphone HCl (Hydromorphone Hcl 0.5 Mg/0.5 Ml Syringe) 0.25 mg IVPUSH Q4H PRN; Protocol PRN Reason: Pain, Moderate(Pain Scale 4-6) Lactated Ringer's (Lr) 1,000 mls @ 150 mls/hr IVCONT .Q6H40M [facility] Last Infusion: 02/19/23 11:58 Dose: 150 mls/hr Documented By: MAKI Promethazine HCl 6.22 mg/ (Sodium Chloride) 50.2488 mls @ 200.995 mls/hr IV ONCE PRN PRN Reason: Nausea and Vomiting Lactated Ringer's (Lr) 1,000 mls @ 100 mls/hr IVCONT .Q10H [facility] Last Admin: 02/19/23 12:04 Dose: 100 mls/hr Documented By: MAKI Cefazolin Sodium/Dextrose (Ancef) 2 gm in 50 mls @ 100 mls/hr IV POSTOP ONE Stop: 02/19/23 14:29 Acetaminophen (Ofirmev) 1,000 mg in 100 mls @ 16.7 mls/hr IV .Q6H [facility] Metoclopramide HCl (Metoclopramide Hcl 10 Mg/2 Ml Vial) 10 mg IVPUSH Q6H PRN PRN Reason: Nausea Last Admin: 02/19/23 12:10 Dose: 10 mg Documented By: GLEN Montelukast Sodium (Montelukast Sodium 10 Mg Tablet) 10 mg PO DAILY [facility] Ondansetron HCl (Ondansetron Hcl 4 Mg/2 Ml Vial) 4 mg IVPUSH Q8H [facility] Last Admin: 02/19/23 12:08 Dose: Not Given Documented By: GLEN Non-Admin Reason: givne in or Sodium Chloride (0.9 % Sodium Chloride Flush 3 Ml Syringe) 3 ml IVFLUSH QSHIFT [facility] Labs 02/19/23 11:26 02/19/23 11:25 Labs: Laboratory Results - last 24 hr 02/19/23 02/19/23 06:15 11:25 Anion Gap 11 L Estim Creat Clear Calc 126.6 Estimated GFR > 60 Random Glucose 172 H Calcium 10.5 H Urine Test NEGATIVE Procedures Date of Service Date of Service: 02/19/23 Progress Note: A&P Assessment and plan (1) S/P laparoscopic sleeve gastrectomy: Status: Acute (2) Morbid obesity: Status: Acute (3) S/P splenectomy: Status: Acute (4) Splenosis: Status: Acute (5) Steatosis of liver: Status: Acute (6) Incisional hernia: Status: Acute Plan See orders. Continue antiemetics and pain meds as needed. Once nausea subsides, encourage sips Trend labs and exam Time Spent With Patient Time: Total time managing care of this patient today ____ minutes. Quality Stroke Does the patient have a stroke diagnosis?: No VTE Prior VTE?: No VTE Risk Level:: Surgical - moderate VTE Device Contraindication: N/A - Device Ordered VTE Drug Contraindication: Treatment Not Indicated
[2023-02-19] MEDS: ceFAZolin Sodium/Dextrose,Iso 2 GM/50 ML PIGGYBACK IV (13:17)
[2023-02-19] MEDS: Acetaminophen 1,000 MG/100 ML PIGGYBACK 16.7 MG IV ×2 (14:00→19:08)
[2023-02-19] MEDS: ondansetron HCL 4 MG/2 ML VIAL IVPUSH (19:41)
[2023-02-19] MEDS: Famotidine/PF 20 MG/2 ML VIAL IVPUSH (21:11)
[2023-02-20] MEDS: Acetaminophen 1,000 MG/100 ML PIGGYBACK 16.7 MG IV ×2 (00:21→06:22)
[2023-02-20] MEDS: ondansetron HCL 4 MG/2 ML VIAL IVPUSH (03:50)
[2023-02-20 04:00] VITALS: BP 122/69; PULSE 71; RESP 18; TEMP 36.3; O2SAT 93
[2023-02-20] MEDS: Lactated Ringers 1,000 ML 100 ML IVCONT (06:20)
[2023-02-20 07:08] LABS: MANUAL DIFF FLAG NO
[2023-02-20] MEDS: Famotidine/PF 20 MG/2 ML VIAL IVPUSH (07:11)
--- NOTE | 2023-02-20 07:28 | PM.PNGS ---
Subjective Subjective Date of Service: 02/20/23 Patient reports: feels better and pain is less Interval history: The patient reports that she is doing better. She had significant nausea postoperatively yesterday and had limited p.o. intake. She notes that this has improved but she does have some epigastric burning. She denies any dysphagia, odynophagia, regurgitation, hematemesis, chest pain, difficulty breathing or shortness of breath Physical Exam Vital Signs: Vital Signs: Last Vital Signs Temp 97.4 F 02/20/23 04:00 Pulse 71 02/20/23 04:00 Resp 18 02/20/23 04:00 BP 122/69 02/20/23 04:00 Pulse Ox 93 02/20/23 04:00 O2 Del Method Room Air 02/20/23 06:50 O2 Flow Rate 3 02/19/23 11:25 BMI result Body Mass Index 49.9 On exam, she is in good spirits She is nontoxic She is in no acute respiratory distress Expected abdominal discomfort is present with no peritoneal sign, her binder is in place Objective Data Active Medications Albuterol Sulfate (Albuterol Sulfate (0.083%) 2.5 Mg/3 Ml Vial.Neb) 2.5 mg INHALE ONCE PRN PRN Reason: Shortness of Breath/Wheezing Famotidine (Famotidine/Pf 20 Mg/2 Ml Vial) 20 mg IVPUSH BID [facility] Last Admin: 02/20/23 07:11 Dose: 20 mg Documented By: GLEN Fentanyl (Fentanyl Citrate/Pf 100 Mcg/2 Ml Vial) 25 mcg IVPUSH Q5M PRN; Protocol PRN Reason: Pain, Moderate(Pain Scale 4-6) Fluticasone/Vilanterol (Fluticasone/Vilanterol 100/25 Blst.W.Dev) 1 puff INHALE RDAILY [facility] Hydromorphone HCl (Hydromorphone Hcl 0.5 Mg/0.5 Ml Syringe) 0.25 mg IVPUSH Q5M PRN; Protocol PRN Reason: Pain, Severe (Pain Scale 7-10) Hydromorphone HCl (Hydromorphone Hcl 0.5 Mg/0.5 Ml Syringe) 0.25 mg IVPUSH Q4H PRN; Protocol PRN Reason: Pain, Moderate(Pain Scale 4-6) Promethazine HCl 6.22 mg/ (Sodium Chloride) 50.2488 mls @ 200.995 mls/hr IV ONCE PRN PRN Reason: Nausea and Vomiting Lactated Ringer's (Lr) 1,000 mls @ 100 mls/hr IVCONT .Q10H [facility] Last Admin: 02/20/23 06:20 Dose: 100 mls/hr Documented By: IRMA Acetaminophen (Ofirmev) 1,000 mg in 100 mls @ 16.7 mls/hr IV .Q6H [facility] Last Admin: 02/20/23 06:22 Dose: 16.7 mls/hr Documented By: IRMA Metoclopramide HCl (Metoclopramide Hcl 10 Mg/2 Ml Vial) 10 mg IVPUSH Q6H PRN PRN Reason: Nausea Last Admin: 02/19/23 12:10 Dose: 10 mg Documented By: GLEN Montelukast Sodium (Montelukast Sodium 10 Mg Tablet) 10 mg PO DAILY [facility] Ondansetron HCl (Ondansetron Hcl 4 Mg/2 Ml Vial) 4 mg IVPUSH Q8H [facility] Last Admin: 02/20/23 03:50 Dose: 4 mg Documented By: IRMA Comments: down time Sodium Chloride (0.9 % Sodium Chloride Flush 3 Ml Syringe) 3 ml IVFLUSH QSHIFT [facility] Last Admin: 02/20/23 07:14 Dose: Not Given Documented By: GLEN Non-Admin Reason: IV Running Labs 02/20/23 05:03 02/19/23 11:25 Labs: Laboratory Results - last 24 hr 02/19/23 11:25 Anion Gap 11 L Estim Creat Clear Calc 126.6 Estimated GFR > 60 Random Glucose 172 H Calcium 10.5 H 02/20/2023 labs are currently pending Procedures Date of Service Date of Service: 02/20/23 Progress Note: A&P Assessment and plan (1) S/P laparoscopic sleeve gastrectomy: Status: Acute (2) Morbid obesity: Status: Acute (3) Asthma: Status: Acute (4) Steatosis of liver: Status: Acute (5) S/P splenectomy: Status: Acute (6) Splenosis: Status: Acute Plan The patient is improved today and I suspect she will be ready to discharge later this morning. Await morning labs and will reassess to be sure she is meeting hydration goals. Compa Hazel PA-C will provide additional dietary instruction before discharge. Patient's was at the bedside and his questions answered. Time Spent With Patient Time: Total time managing care of this patient today ____ minutes. Quality Stroke Does the patient have a stroke diagnosis?: No VTE Prior VTE?: No VTE Risk Level:: Surgical - moderate VTE Device Contraindication: N/A - Device Ordered VTE Drug Contraindication: Treatment Not Indicated
[2023-02-20 07:33] LABS: Basophils Percent Auto 0.1 % (0-2); Hematocrit 36.8 % (37.0-47.0); Hemoglobin 11.8 g/dl (12.0-16.0); Imm Gran Abs Auto 0.04 X10*3/uL (0.00-0.03); Imm Gran Pct Auto 0.3 % (0.0-0.4); Lymphocytes Absolute Auto 1.8 X10*3/uL (1.2-4.9); Lymphocytes Percent Auto 15.2 % (20-40); Mean Corpuscular HGB Conc 32.1 g/dl (31.0-35.0); Mean Corpuscular Hemoglobin 29.6 pg (27.0-33.0); Mean Corpuscular Volume 92.5 fL (80.0-98.0); Mean Platelet Volume 12.6 fL (9.4-12.3); Monocytes Absolute Auto 1.2 X10*3/uL (0.1-1.2); Neutrophils Percent Auto 74.4 % (45-73); Platelet Count 257 X10*3/uL (160-400); Red Blood Count 3.98 X10*6/uL (4.20-5.50); Red Cell Distribution Width 13.2 % (11.0-16.0); White Blood Count 12.1 X10*3/uL (4.8-10.8)
[2023-02-20 07:36] VITALS: BP 126/63; PULSE 76; RESP 18; TEMP 36.1; O2SAT 95
[2023-02-20 07:41] LABS: Anion Gap 10 (12-20); Blood Urea Nitrogen 9 mg/dL (9-16); Calcium 9.8 mg/dL (8.4-10.2); Carbon Dioxide 25 mmol/L (22-29); Chloride 107 mmol/L (96-108); Creatinine Clr Calc Pharmacy 134.4; Estimated Glomerular Filt Rate > 60; Glucose Random 97 mg/dL (60-115); Sodium 138 mmol/L (135-145)
--- NOTE | 2023-02-20 09:10 | MHC.CM.PN ---
ptdcd home no skilled services ordered by
--- NOTE | 2023-02-20 09:59 | HO.POSTANES ---
Post Anesthesia Evaluation Post Anesthesia Evaluation Date of Service: 02/20/23 Vital Signs: Vital Signs Temp Pulse Resp BP Pulse Ox O2 Del Method 02/20/23 07:36 96.9 F 76 18 126/63 95 Room Air 02/20/23 06:50 Room Air 02/20/23 04:00 97.4 F 71 18 122/69 93 Room Air 02/19/23 23:27 97.7 F 74 18 120/70 92 Room Air Anesthesia: General Endotracheal-GETA Mental Status: Awake Pain Control: Satisfactory Nausea/Vomiting: Mild (had significant nausea but improving) Hydration: Adequate Anesthesia-Related Issues: No Anes. Related Issues
== END 2023-02-20 10:40 | disposition home or self-care (01) | DRG 403 ==
LOC: HO.SSSA 06:08 → HO.S3 10:50
PROVIDERS: Nurse Practitioner; Physician Assistant Surgical; Admitting Provider Surgery; PCP Internal Medicine; Visit Provider Surgery
PROC: 0DB64Z3 Excision of Stomach, Percutaneous Endoscopic Approach, Vertical (ICD-10-PCS; CPT 43845; principal; 2023-02-19 07:30)
DX: E66.01 Morbid (severe) obesity due to excess calories (principal); K76.0 Fatty (change of) liver, not elsewhere classified; D73.89 Other diseases of spleen; J45.909 Unspecified asthma, uncomplicated; Z68.42 Body mass index [BMI] 45.0-49.9, adult; K66.0 Peritoneal adhesions (postprocedural) (postinfection); Z79.899 Other long term (current) drug therapy
CPT/HCPCS: 43659; 43775; 36415; 80048; 81025; 85014; 85018; 85025; 86850; 86900; 86901; 88307; 88342; C1713; C9145; J0131; J0690; J1100; J1170; J2250; J2405; J2765; J3010

== ENCOUNTER → 2023-02-19 06:06 | Outpatient (BNV) | payer OTHER, MEDICAID, SELFPAY | PROVIDERS: Admitting Provider Surgery; PCP Internal Medicine; Visit Provider Surgery | DX: E66.01 Morbid (severe) obesity due to excess calories (principal); Z68.43 Body mass index [BMI] 50.0-59.9, adult; Z90.3 Acquired absence of stomach [part of]; Z98.84 Bariatric surgery status | CPT/HCPCS: 43659; 43775; 99024 ==

== ENCOUNTER 2023-02-25 10:24 | Outpatient (AMB) | payer OTHER, MEDICAID, SELFPAY ==
--- NOTE | 2023-02-25 11:11 | MHC.OFFVISWM ---
Intake VS Expanded 02/25/23 11:12 Height 5 ft 2 in Weight 265 lb 12.8 oz BMI 48.6 BP 119/69 Blood Pressure Location Rt brachial Blood Pressure Position Sitting Pulse 60 Pulse Source Pulse Oximeter Temp 97.4 F Temperature Source Temporal Artery Scan Pulse Oximetry 95 Oxygen Delivery Method Room Air Body Fat 49.5 Body Fat Percentage 49.5 Free Fat Mass 134.0 Muscle Mass 127.2 Visceral Mass 17.0 Water Mass 95.6 BMR 1,920 Intake Visit Reasons: (OV) 6 Days PO LSG 02/19/23 Asp Developer Required: No Kaiako Kura [place]: Kaiako Kura [place] offered & declined Allergies azithromycin [From Zithromax Z-Hugh] Adverse Reaction (Intermediate, Verified 02/25/23 11:14) Gastrointestinal Upset Medication List - Last Reconciled 02/25/23 by Hay Vega MD acetaminophen 500 mg (15 mL) PO Q6H PRN budesonide-formoterol 80-4.5 mcg/actuation (Symbicort) 2 puffs inhalation Q12H cetirizine (Zyrtec) 10 mg PO DAILY PRN fluticasone propionate 50 mcg/actuation (Flonase Allergy Relief) 1 spray intranasal DAILY PRN montelukast (Singulair) 10 mg PO DAILY pantoprazole 40 mg PO QAM 30 days sucralfate 10 mL PO BID 30 days HPI HPI Comments History of Present Illness Details The patient is postop day 6 status post laparoscopic sleeve gastrectomy on 02/19/2023 without hiatal hernia repair; a lysis of adhesions was required given her prior splenectomy. Patient reports that she is doing well and is currently taking celebrate 4 in 1 shakes with low-fat milk, 1 shake in the morning, 1 shake in the evening and is taking at least 40 oz of water a day, typically 50 oz. She is walking but avoiding core strengthening activities. She is taking her pantoprazole; I received a notice from her pharmacy regarding automatic refills. She does not need to continue the PPI indefinitely but only for 2-3 months after surgery. She is having no nausea, vomiting being, regurgitation, odynophagia, GERD. She also denies difficulty breathing, shortness of breath. Meal plan Patient will take 2 scoops of celebrate 4 in 1 in the morning and 2 scoops in the evening. Both her mixed with low-fat milk; she will continue to work towards 50 oz of water per day. She is interested in adding a protein bar in the next week. She also has premiere shakes, 25 g and will switch her celebrate shakes to unsweetened almond milk. Activity restrictions were also discussed. The patient has requested a work note to return on February 27 on light duty. She cannot lift more than 20 lb until April 01. [facility] Medical History Arthritis Asthma Binge-eating disorder, mild Binge-eating disorder, mild Incisional hernia Splenosis Steatosis, liver Surgical History H/O splenectomy History of back surgery History of delivery Hx of laparoscopic partial gastrectomy Hx of tear of meniscus of knee joint S/P splenectomy Family History Father Cancer Paternal Grandmother Diabetes Social History Household Members: Spouse Housing: House Are you a primary transitional care nurse to a significant other at home: Yes Do you presently have visiting nurse or other home services: No Alcohol intake: current Alcohol intake frequency: holidays/special occasions only Alcohol type: hard liquor Patient Tobacco Use Status: Never used Tobacco Current occupational status: employed Current occupation: retail Review of Systems Const All systems reviewed & are unremarkable except as noted in HPI and below Physical Exam Vital Signs: Last Vital Signs Temp 97.4 F 02/25/23 11:12 Pulse 60 02/25/23 11:12 BP 119/69 02/25/23 11:12 Pulse Ox 95 02/25/23 11:12 Oxygen Delivery Method Room Air 02/25/23 11:12 BMI result Body Mass Index 48.6 On exam she is anicteric and nontoxic She is in no acute respiratory distress She is comfortable Her abdominal incisions are well healed with no evidence of infection, cellulitis or hernia Results Reviewed Results Reviewed: Pathology demonstrated benign gastric mucosa, no evidence of neoplasia and no evidence of Helicobacter in the specimen Assessment & Plan Assessment & Plan (1) S/P laparoscopic sleeve gastrectomy: Code(s): Z98.84 - Bariatric surgery status (2) Morbid obesity: Code(s): E66.01 - Morbid (severe) obesity due to excess calories (3) Asthma: Code(s): J45.909 - Unspecified asthma, uncomplicated (4) Steatosis of liver: Code(s): K76.0 - Fatty (change of) liver, not elsewhere classified Plan The patient will begin exercising every other day with aerobic exercises such as walking or stationary bike. Goal to try to burn 350 kilocalorie daily per exercise session was discussed. Unfortunately, the patient is not currently trending calorie expenditure. Meal plan: 2 scoops of celebrate 4 in 1 in on sweetened almond milk twice a day; patient will and 1 Premier shake at lunch. She will continue to work on hydration. She will continue continue Carafate elixir, Tylenol p.r.n. and Protonix. She will have a follow-up appointment with me in 3 weeks and Mallory Dent in the next month. She will text me weights on Tuesdays and was provided my cell phone; the importance of hydration and increased activity to optimize surgical weight loss was reviewed and apparently understood. Coding Level of Care Code Global (94249) Diagnoses S/P laparoscopic sleeve gastrectomy Z98.84 Morbid obesity E66.01 Asthma J45.909 Steatosis of liver K76.0
[2023-02-25 11:12] VITALS: BP 119/69; PULSE 60; TEMP 36.3; O2SAT 95; BMI 48.6
== END 2023-02-25 12:48 | disposition home or self-care (01) ==
PROVIDERS: PCP Internal Medicine; Visit Provider Surgery
DX: E66.01 Morbid (severe) obesity due to excess calories (principal); Z68.42 Body mass index [BMI] 45.0-49.9, adult; Z90.3 Acquired absence of stomach [part of]; Z98.84 Bariatric surgery status
CPT/HCPCS: 99024

== ENCOUNTER → 2023-02-25 10:24 | Outpatient (BNVA) | payer OTHER, MEDICAID, SELFPAY | PROVIDERS: PCP Internal Medicine; Visit Provider Surgery ==

== ENCOUNTER → 2023-03-10 10:56 | Outpatient (BNVA) | payer OTHER, MEDICAID, SELFPAY | PROVIDERS: PCP Internal Medicine; Visit Provider Dietitian, Registered | DX: E66.9 Obesity, unspecified (principal); Z68.42 Body mass index [BMI] 45.0-49.9, adult; Z98.84 Bariatric surgery status; Z71.3 Dietary counseling and surveillance | CPT/HCPCS: 97803 ==

== ENCOUNTER 2023-03-18 10:29 | Outpatient (AMB) | payer OTHER, MEDICAID, SELFPAY ==
--- NOTE | 2023-03-18 10:32 | MHC.OFFVISWM ---
Intake VS Expanded 03/18/23 10:39 Height 5 ft 2 in Weight 256 lb 12.8 oz BMI 47.0 BP 133/62 Blood Pressure Location Rt radial Blood Pressure Position Sitting Pulse 73 Pulse Source Pulse Oximeter Temp 97.3 F Temperature Source Tympanic Pulse Oximetry 97 Oxygen Delivery Method Room Air Body Fat 120.8 Body Fat Percentage 47.1 Free Fat Mass 135.8 Muscle Mass 96.8 Visceral Mass 16.0 Water Mass 96.8 BMR 1,924 Intake Visit Reasons: (OV) PO LSG 02/19/23 Lunch Truck Driver Required: No Tray Line Worker: Tray Line Worker offered & declined Allergies azithromycin [From Zithromax Z-Hugh] Adverse Reaction (Intermediate, Verified 02/25/23 11:14) Gastrointestinal Upset HPI HPI Comments History of Present Illness Details The patient is postop s/p laparoscopic sleeve gastrectomy on 02/19/2023 without hiatal hernia repair; a lysis of adhesions was required given her prior splenectomy. Patient reports that she is doing well and is currently taking and is taking at least 40 oz of water a day, typically 50 oz. She is walking but avoiding core strengthening activities. She is taking her pantoprazole; I received a notice from her pharmacy regarding automatic refills. She does not need to continue the PPI indefinitely but only for 2-3 months after surgery. She is having no nausea, vomiting being, regurgitation, odynophagia, GERD. She also denies difficulty breathing, shortness of breath. She presents with a weight of 256.8 lbs/ BMI 47.0 today; this represents a 52 lb weight loss since entering the surgical weight loss program Meal plan Premier (using both powdered and premade shakes with a goal of 90 g protein per day) Currently using almond milk; she will continue to work towards 50 oz of water per day. She is interested in added a protein bar & held off on scrambled egg, yogurt and cottage cheese, 1 out serving at this time but will likely and these next week. She is using flintstone vitamins but has samples from [facility] she has not tried yet. Exercise She is walking 2 miles 4-5 days a week. She is not currently trending exercise expenditure and a handout regarding free apps for walking and other exercise activities were reviewed. Patient purchased arm weights. The importance of reaching a goal of 350+ kcal per exercise session was discussed. She has an upcoming vacation traveling by airliner to floor at a for [place]. Diet and activity questions including concerns about vibrio in sea water were discussed. [facility] Medical History Arthritis Asthma Binge-eating disorder, mild Binge-eating disorder, mild Incisional hernia Splenosis Steatosis, liver Surgical History H/O splenectomy History of back surgery History of delivery Hx of laparoscopic partial gastrectomy Hx of tear of meniscus of knee joint S/P splenectomy Family History Father Cancer Paternal Grandmother Diabetes Social History Household Members: Spouse Housing: House Are you a primary respiratory care practitioner to a significant other at home: Yes Do you presently have visiting nurse or other home services: No Alcohol intake: current Alcohol intake frequency: holidays/special occasions only Alcohol type: hard liquor Patient Tobacco Use Status: Never used Tobacco Current occupational status: employed Current occupation: retail Physical Exam On exam she is nontoxic Sclera remain anicteric Surprisingly, her abdominal incisions still have Steri-Strips intact. Options regarding removal with nail Cypriot remover were discussed Results Reviewed Results Reviewed: Pathology demonstrated benign gastric mucosa, no evidence of neoplasia and no evidence of Helicobacter in the specimen Assessment & Plan Assessment & Plan (1) S/P laparoscopic sleeve gastrectomy: Code(s): Z98.84 - Bariatric surgery status (2) Morbid obesity: Code(s): E66.01 - Morbid (severe) obesity due to excess calories (3) Asthma: Code(s): J45.909 - Unspecified asthma, uncomplicated Plan The importance of following hydration goals, especially with air travel and moving her feet to mitigate risks of DVT were discussed and apparently understood. Dietary questions were reviewed. The patient notes that she is interested in staying on the liquid/high-protein diet as long as possible but noted she will likely add fresh fish, 1-2 oz portion while in [place] on vacation. She notes she is planned meals and hydration for vacation and we discussed pitfalls of high carbohydrate/fried and fatty foods. We also reviewed the importance of tracking calorie expenditure with exercise for success. Patient will continue to text weights. She will reach out with any questions or if she needs to be seen before her vacation, otherwise, I will see her back in 2 months, sooner with questions/problems. Coding Level of Care Code Global (36967) Diagnoses S/P laparoscopic sleeve gastrectomy Z98.84 Morbid obesity E66.01 Asthma J45.909
[2023-03-18 10:39] VITALS: BP 133/62; PULSE 73; TEMP 36.3; O2SAT 97; BMI 47.0
== END 2023-03-18 11:18 | disposition home or self-care (01) ==
PROVIDERS: PCP Internal Medicine; Visit Provider Surgery
DX: E66.01 Morbid (severe) obesity due to excess calories (principal); Z68.42 Body mass index [BMI] 45.0-49.9, adult; Z90.3 Acquired absence of stomach [part of]; Z98.84 Bariatric surgery status
CPT/HCPCS: 99024

== ENCOUNTER → 2023-03-18 10:29 | Outpatient (BNVA) | payer OTHER, MEDICAID, SELFPAY | PROVIDERS: PCP Internal Medicine; Visit Provider Surgery ==

== ENCOUNTER → 2023-03-31 11:32 | Outpatient (BNVA) | payer OTHER, MEDICAID, SELFPAY | PROVIDERS: PCP Internal Medicine; Visit Provider Dietitian, Registered | DX: E66.9 Obesity, unspecified (principal); Z98.84 Bariatric surgery status; Z71.3 Dietary counseling and surveillance | CPT/HCPCS: 97803 ==

== ENCOUNTER → 2023-04-29 10:00 | Outpatient (BNVA) | payer OTHER, MEDICAID, SELFPAY | PROVIDERS: PCP Internal Medicine; Visit Provider Dietitian, Registered | DX: Z98.84 Bariatric surgery status (principal); Z71.3 Dietary counseling and surveillance | CPT/HCPCS: 97803 ==

== ENCOUNTER 2023-05-13 09:49 | Outpatient (AMB) | payer OTHER, MEDICAID, SELFPAY ==
--- NOTE | 2023-05-13 09:57 | A.OFFVIS_ITS ---
Intake VS Expanded 05/13/23 10:04 BP 114/59 L Blood Pressure Location Rt brachial Blood Pressure Position Sitting Pulse 74 Pulse Source Pulse Oximeter Temp 96.9 F Temperature Source Tympanic Pulse Oximetry 96 Oxygen Delivery Method Room Air Height 5 ft 2 in Weight 240 lb 6.4 oz BMI 44.0 Body Fat % 44.4 Body Fat Mass 106.8 Fat Free Mass 133.6 Visceral Fat Rating 14.0 Body Water % 39.6 Body Water Mass 95.2 Muscle Mass/Score 126.8 Basal Metabolic Rate/Score 1,872 Intake Visit Reasons: (OV) PO LSG 02/19/23 Allergies azithromycin [From Zithromax Z-Hugh] Adverse Reaction (Intermediate, Verified 02/25/23 11:14) Gastrointestinal Upset HPI HPI Comments History of Present Illness Details The patient is postop s/p laparoscopic sleeve gastrectomy on 02/19/2023 without hiatal hernia repair; a lysis of adhesions was required given her prior splenectomy. Patient reports that she is doing well and is currently taking and is taking at least 40 oz of water a day, typically 50 oz. She has been walking, and recognizes that she needs to get to the gym more. She is taking pantoprazole but advised to taper this off every other day over the next week or 2 and contact me if she develops upper GI symptoms. She is having no nausea, vomiting being, regurgitation, odynophagia, GERD. She also denies difficulty breathing, shortness of breath. She presents with a weight of 240.4 lbs/ BMI 44.0 today; this represents a 68 lb weight loss since entering the surgical weight loss program. The patient is pleased with her weight loss but noted that she was hopeful for more weight loss; she acknowledges that she knows she needs to exercise more. She notes that she has not exercising as much as she is hoped and is working towards exercising 5 days a week but is currently only going 3 times. Meal plan Premier (using both powdered and premade shakes with a goal of 90 g protein per day) Currently using almond milk; she will continue to work towards 50 oz of water per day. She is interested in added a protein bar & held off on scrambled egg, yogurt and cottage cheese, 1 out serving at this time but will likely and these next week. She is taking protein shakes as well as 1 oz of protein and have oz of cooked vegetables. She is interested in adding green salad and we discussed the importance of protein 1st and then the risk of calories from fat based salad dressings. Exercise She is walking at the gym 3 days a week. She is not currently trending exercise expenditure and a handout regarding free apps for walking and other exercise activities were reviewed. Patient purchased arm weights. The importance of reaching a goal of 350+ kcal per exercise session was discussed. [facility] Medical History Arthritis Binge-eating disorder, mild Asthma Steatosis, liver Incisional hernia Splenosis Binge-eating disorder, mild Surgical History Hx of laparoscopic partial gastrectomy S/P splenectomy Hx of tear of meniscus of knee joint History of back surgery H/O splenectomy History of delivery Family History Father Cancer Paternal Grandmother Diabetes Social History Household Members: Spouse Housing: House Are you a primary home care and home health aides teacher to a significant other at home: Yes Do you presently have visiting nurse or other home services: No Alcohol intake: current Alcohol intake frequency: holidays/special occasions only Alcohol type: hard liquor Patient Tobacco Use Status: Never used Tobacco Current occupational status: employed Current occupation: retail Review of Systems Const All systems reviewed & are unremarkable except as noted in HPI and below Physical Exam Vital Signs: Last Vital Signs Temp 96.9 F 05/13/23 10:04 Pulse 74 05/13/23 10:04 BP 114/59 L 05/13/23 10:04 Pulse Ox 96 05/13/23 10:04 Oxygen Delivery Method Room Air 05/13/23 10:04 BMI result Body Mass Index 44.0 On exam she is nontoxic Sclera remain anicteric Surprisingly, her abdominal incisions still have Steri-Strips intact. Options regarding removal with nail Macedonian remover were discussed Assessment & Plan Assessment & Plan (1) S/P laparoscopic sleeve gastrectomy: Code(s): Z98.84 - Bariatric surgery status (2) Asthma: Code(s): J45.909 - Unspecified asthma, uncomplicated (3) Morbid obesity: Code(s): E66.01 - Morbid (severe) obesity due to excess calories (4) Steatosis of liver: Code(s): K76.0 - Fatty (change of) liver, not elsewhere classified Plan The patient is congratulated on her 68 lb weight loss. She is doing well with the meal plan but understands she needs to increase her activity and commit more to exercise if she is going to lose more weight. She will wean off her PPI over the next couple weeks by taking it every other day and contact me if she is having any upper GI symptoms. She will follow-up with me in 3 months for re-evaluation in text me weights in the meantime. If she has any problems, she will contact me. She is encouraged to also reach out [facility] with any dietary questions. Coding Level of Care Code Est Pt Level 4 (47604) Diagnoses S/P laparoscopic sleeve gastrectomy Z98.84 Asthma J45.909 Morbid obesity E66.01 Steatosis of liver K76.0
[2023-05-13 10:04] VITALS: BP 114/59; PULSE 74; TEMP 36.1; O2SAT 96; BMI 44.0
== END 2023-05-13 11:02 | disposition home or self-care (01) ==
PROVIDERS: PCP Internal Medicine; Visit Provider Surgery
DX: Z98.84 Bariatric surgery status (principal); J45.909 Unspecified asthma, uncomplicated; E66.01 Morbid (severe) obesity due to excess calories; K76.0 Fatty (change of) liver, not elsewhere classified
CPT/HCPCS: 99024

== ENCOUNTER → 2023-05-13 09:49 | Outpatient (BNVA) | payer OTHER, MEDICAID, SELFPAY | PROVIDERS: PCP Internal Medicine; Visit Provider Surgery ==

== ENCOUNTER → 2023-05-27 10:03 | Outpatient (BNVA) | payer OTHER, SELFPAY | PROVIDERS: PCP Internal Medicine; Visit Provider Dietitian, Registered | DX: E66.9 Obesity, unspecified (principal); Z98.84 Bariatric surgery status; Z71.3 Dietary counseling and surveillance | CPT/HCPCS: 97803 ==

== ENCOUNTER 2023-06-16 11:09 | Outpatient (AMB) | payer OTHER, SELFPAY ==
--- NOTE | 2023-06-19 13:39 | MHC.WMTHER ---
Intake Intake Visit Reasons: (TV) PO LSG 02/19/23 Allergies azithromycin [From Zithromax Z-Hugh] Adverse Reaction (Intermediate, Verified 02/25/23 11:14) Gastrointestinal Upset PFSH Medical History (Reviewed 05/13/23 @ 11:01 by Hay Vega MD, [facility] WITH [facility]) Arthritis Binge-eating disorder, mild Asthma Steatosis, liver Incisional hernia Splenosis Binge-eating disorder, mild Surgical History Hx of laparoscopic partial gastrectomy S/P splenectomy Hx of tear of meniscus of knee joint History of back surgery H/O splenectomy History of delivery Family History (Reviewed 05/13/23 @ 11:01 by Hay Vega MD, [facility] WITH [facility]) Father Cancer Paternal Grandmother Diabetes Social History (Reviewed 05/13/23 @ 11:01 by Hay Vega MD, [facility] WITH [facility]) Household Members: Spouse Housing: House Are you a primary health care facilities inspector to a significant other at home: Yes Do you presently have visiting nurse or other home services: No Alcohol intake: current Alcohol intake frequency: holidays/special occasions only Alcohol type: hard liquor Patient Tobacco Use Status: Never used Tobacco Current occupational status: employed Current occupation: retail Behavioral Health Assessment Weight Management Therapy Therapy Notes Details patient stated that she is struggling with motivation, aknowledges she knows what she needs to do, but is not doing it. Discussed her goals, reviewed her why and came up with a plan to immediately start exercising in a way that is doable for now. (initial intake) Pt is looking to have weight loss surgery to help improve her health and quality of life. No history of any mental health issues , no problems with drugs or alcohol, no history of inpatient psychiatric admissions, no legal problems. She reported doing well so far, following the program requirements. Presenting Concerns Referral Source provider Reason for referral weight loss surgery Precipitating Event obesity Living Situation Current Living Situation Own At risk of losing current housing? Yes Satisfied with current living situation? No Comments Pt lives with her and step daughters, and son. Food/Weight/Diet Expectations of change weight loss and maintenance. History/Relationship with food Pt reported that she would either be on track doing low carb/high protein, and then fall off track derail and continuing eating that week for 2-3 weeks. She reported that she feels like she has always been dieting. She would often skip meals and go all day without eating. Pt reported that she would often eat 4-5 servings of something rather than one. Growing up never had access to fresh vegetables or fruit. Cereal would be a snack or processed foods. 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 Pt reported that growing up she was healthy, thinner, but was curvy. At her heaviest she was a size 26 right before she started hypnosis. Binge Eating Do you frequently eat large amounts of food in short periods of time, not feeling physically hungry? Yes Do you feel out of control when you eat a large amount of food in a short period of time? Yes Do you eat large amounts of food rapidly and typically alone? Yes Night Eating Do you wake up at least once during the night to eat? No If you wake up in the night, do you find that it is necessary to eat something in order to fall back asleep? No Do you have little or no appetite in the morning and feel very hungry in the evening, often overeating between dinner and when you go to bed? Yes Social History Family history and relationship Pt stated that her father was an alcoholic, mother worked two jobs and went to school, they were poor, often had unhealthy foods. Pt is one of three siblings. Later found out she has other siblings from her father. Mother is still living, father of cancer at age 76. Parental/Familial motion picture director obligations teenaged children Developmental history and status no issues Social support , two close [place] of friends, mom Community support formerly [facility] Cultural/Ethnic information Legal Involvement and History Current or historical involvement with the legal system? none Education Preferred learning style Auditory, Verbal, Written, Learn by doing and Visual Currently enrolled in educational program? No Interested in further educational program? 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 Employment Employment Status [employer] Wants help to find employment? No Financial Situation Financial assistance? None Service Service? No Mental Health and Addiction Treatment Current/Past substance abuse? No Pain Screening Current pain? No Pain in the last few months? No Medications Is the patient compliant with medications? Yes Does the patient have Hernandez Guardian in place? Not applicable Trauma/Abuse History History of trauma? Yes Assessment & Plan Assessment & Plan (1) Adjustment disorder, unspecified: Code(s): F43.20 - Adjustment disorder, unspecified (2) Morbid obesity: Code(s): E66.01 - Morbid (severe) obesity due to excess calories Plan Patient ia doing well, she has some barriers and will be seen again for further therapeutic support. Patient is several months post weight loss surgery and struggling with implementing healthy habits. Telehealth Telehealth Location of provider rendering services: practice address Location of patient: address on file Patient Identification confirmed using: Name, : Yes Telehealth method: video Patient verbally consented to treatment: Yes Patient verbally consented to billing insurance company: Yes Patient informed of any privacy concerns related to visit: Yes Coding Level of Care Code Tele Psytx 45 mins (58719) Diagnoses Adjustment disorder, unspecified F43.20 Morbid obesity E66.01 Time Spent (min) 40
== END 2023-06-19 13:39 | disposition home or self-care (01) ==
LOC: HO.HBST 11:09
PROVIDERS: PCP Internal Medicine; Visit Provider Counselor Mental Health
DX: F43.20 Adjustment disorder, unspecified (principal); E66.01 Morbid (severe) obesity due to excess calories
CPT/HCPCS: 90834

== ENCOUNTER → 2023-06-16 11:09 | Outpatient (BNVA) | payer OTHER, SELFPAY | PROVIDERS: PCP Internal Medicine; Visit Provider Counselor Mental Health ==

== ENCOUNTER 2023-06-26 11:50 | Outpatient (AMB) | payer OTHER, SELFPAY ==
[2023-06-26 11:43] VITALS: BMI 41.3
--- NOTE | 2023-06-26 11:43 | MHC.AMNUTRGE ---
Intake VS Expanded 06/26/23 11:43 Height 5 ft 2 in Weight 226 lb BMI 41.3 Intake Visit Reasons: (TV) PO LSG 02/19/23 Allergies azithromycin [From Zithromax Z-Hugh] Adverse Reaction (Intermediate, Verified 02/25/23 11:14) Gastrointestinal Upset HPI Nutrition Presentation Details PO LSG 02/19/[address] Vega WET PAN MIXER weight 308 August 2022 preop weight 273# Last weight at 3 wks weight 256 weight at 9wks PO 252# weight at 3 MO PO 234# current weight at 4 MO 226 Reason for consult elevated BMI Diet Assmnt Details pt is 4MO out from LSG. Feels that she is doing greatt, no complaints 2 premier shakes - powder with fairlife milk also having 1 meal, mainly just protein, doesn't have room for veg. is feeling really good and happy with her progress. Hydration: pt reports adequate Vitamins: still taking flinstones - last appt gave samples hasnt tried them. doing fiber gummies and notices huge improvement in regularity. Longer taking stool softener as she reports it is not needed Exercise : I am doing much better has a [employer] cardio machine , plus some weights, totals 45 minutes Dietary counseling reduction Diagnosis Nutrition problem #1 overweight/obesity As related to (etiology) #1 excess energy intake and physical inactivity As evidenced by (sign/symptom) #1 high BMI Monitoring/Goals Nutrition problem monitoring total energy intake, level of knowledge/skill, total PRO intake, total CHO intake and weight Outcome progress progressing Learning/Education Readiness to learn excellent Stages of change action Most Recent Diabetes Results: No Data to Display PFS Medical History Arthritis Binge-eating disorder, mild Asthma Steatosis, liver Incisional hernia Splenosis Binge-eating disorder, mild Surgical History Hx of laparoscopic partial gastrectomy S/P splenectomy Hx of tear of meniscus of knee joint History of back surgery H/O splenectomy History of delivery Family History Father Cancer Paternal Grandmother Diabetes Social History (Reviewed 05/13/23 @ 11:01 by Hay Vega MD, FACS, [facility]) Household Members: Spouse Housing: House Are you a primary transitions rn care coordinator to a significant other at home: Yes Do you presently have visiting nurse or other home services: No Alcohol intake: current Alcohol intake frequency: holidays/special occasions only Alcohol type: hard liquor Patient Tobacco Use Status: Never used Tobacco Current occupational status: employed Current occupation: retail Assessment & Plan Assessment & Plan (1) Morbid obesity: Code(s): E66.01 - Morbid (severe) obesity due to excess calories Plan next appt dr. Vega, pt was encouraged to communicate in the meantime if needed. Patient Instructions: Will switch to bariatric MVI and continue high protein diet. Reinforced listening to hunger/satiety cues. Telehealth Telehealth Location of provider rendering services: practice address Location of patient: address on file Patient Identification confirmed using: Name, : Yes Telehealth method: voice only Patient verbally consented to treatment: Yes Patient verbally consented to billing insurance company: Yes Patient informed of any privacy concerns related to visit: Yes Minutes spent on Phone/Video with Pt.: 15 Coding Level of Care Code Nutr Indiv Subseq (11131) Diagnoses Morbid obesity E66.01 Time Spent (min) 15
== END 2023-06-26 11:54 | disposition home or self-care (01) ==
LOC: HO.HBS 11:50
PROVIDERS: PCP Internal Medicine; Visit Provider Dietitian, Registered
DX: E66.01 Morbid (severe) obesity due to excess calories (principal)

== ENCOUNTER → 2023-06-26 11:50 | Outpatient (BNVA) | payer OTHER, SELFPAY | PROVIDERS: PCP Internal Medicine; Visit Provider Dietitian, Registered | DX: E66.01 Morbid (severe) obesity due to excess calories (principal); Z68.41 Body mass index [BMI] 40.0-44.9, adult; Z98.84 Bariatric surgery status; Z71.3 Dietary counseling and surveillance | CPT/HCPCS: 97803 ==

== ENCOUNTER 2023-08-12 11:12 | Outpatient (AMB) | payer OTHER, SELFPAY ==
--- NOTE | 2023-08-12 11:04 | MHC.OFFVISWM ---
Intake VS Expanded 08/12/23 11:17 Height 5 ft 2 in Weight 223 lb 8 oz BMI 40.9 Intake Visit Reasons: (TELEPHONE) PO LSG 02/19/23 Allergies azithromycin [From Zithromax Z-Hugh] Adverse Reaction (Intermediate, Verified 02/25/23 11:14) Gastrointestinal Upset Medication List - Last Reconciled 08/12/23 by JENSEN Grace budesonide-formoterol 80-4.5 mcg/actuation (Symbicort) 2 puffs inhalation Q12H cetirizine (Zyrtec) 10 mg PO DAILY PRN fluticasone propionate 50 mcg/actuation (Flonase Allergy Relief) 1 spray intranasal DAILY PRN montelukast (Singulair) 10 mg PO DAILY HPI HPI Comments History of Present Illness Details This?is a?47?yo female who is s/p LSG 02/19/2023. Presents for 6 month post op visit. Weight at last visit on 06/26/2023 was 226 pounds with a BMI of 41.3, weight today is 223.2 pounds, representing a 2.8 pound weight loss with a BMI today of 40.9.? No complaints of nausea, emesis, abdominal pain or reflux, or constipation. Present meal plan includes: 2 premier shakes - powder with fairlife milk also having 1 meal, mostly protein and a little of vegetables / salad flintstones vitamins Exercise : has a Max-Viz cardio machine, plus some weights, totals 45 minutes Pt reports some painful rashes of skin fold of abdomen. Sometimes areas open up. Did the patient ever have any of these conditions and are they resolved or still being treated? GERD: never DAVID:? never DM:? never HTN:? never Hyperlipidemia:? never Post op complications:? none PFSH Medical History Arthritis Binge-eating disorder, mild Asthma Steatosis, liver Incisional hernia Splenosis Binge-eating disorder, mild Surgical History Hx of laparoscopic partial gastrectomy S/P splenectomy Hx of tear of meniscus of knee joint History of back surgery H/O splenectomy History of delivery Family History (Reviewed 05/13/23 @ 11:01 by Hay Vega MD, [place], [facility]) Father Cancer Paternal Grandmother Diabetes Social History (Reviewed 05/13/23 @ 11:01 by Hay Vega MD, [place], [facility]) Household Members: Spouse Housing: House Are you a primary resident care aide to a significant other at home: Yes Do you presently have visiting nurse or other home services: No Alcohol intake: current Alcohol intake frequency: holidays/special occasions only Alcohol type: hard liquor Patient Tobacco Use Status: Never used Tobacco Current occupational status: employed Current occupation: retail Assessment & Plan Assessment & Plan (1) S/P laparoscopic sleeve gastrectomy: Code(s): Z98.84 - Bariatric surgery status (2) Morbid obesity: Code(s): E66.01 - Morbid (severe) obesity due to excess calories Plan Pt sometimes low on protein intake, knows she sometimes does not meet exercise goal so will work on those goals. Labs ordered. She is doing well from a surgical standpoint. Clotrimazole ointment ordered for rashes of excess skin. Next follow up with RD in 2 months, pt will call for appt. Patient is morbidly obese and is not considered stable at this time. I spent a total of 30 minutes reviewing/updating records, examining the patient and counseling the patient on weight management as detailed above. Orders: Orders Insulin Today Z98.84 - Bariatric surgery status Hemoglobin A1c Today Z98.84 - Bariatric surgery status Lipid Panel Today Z98.84 - Bariatric surgery status IRON PROFILE Today Z98.84 - Bariatric surgery status Vitamin B1 Today Z98.84 - Bariatric surgery status Vitamin A Today Z98.84 - Bariatric surgery status Complete Blood Count Auto Diff Today Z98.84 - Bariatric surgery status Comprehensive Met. Panel Today Z98.84 - Bariatric surgery status Vitamin B12 and Folate Today Z98.84 - Bariatric surgery status Zinc Today Z98.84 - Bariatric surgery status C Reactive Protein Today Z98.84 - Bariatric surgery status TSH reflex Free T4 Today Z98.84 - Bariatric surgery status Ferritin Today Z98.84 - Bariatric surgery status Vitamin D 25-OH Total Today Z98.84 - Bariatric surgery status Medications: New clotrimazole 1% 1 appl topical BID 45 grams 3RF Telehealth Telehealth Location of provider rendering services: other Location of patient: address on file Patient Identification confirmed using: Name, : Yes Telehealth method: voice only Patient verbally consented to treatment: Yes Patient verbally consented to billing insurance company: Yes Patient informed of any privacy concerns related to visit: Yes Minutes spent on Phone/Video with Pt.: 15 Coding Level of Care Code Tele Est Pt Level 4 (89839) Diagnoses S/P laparoscopic sleeve gastrectomy Z98.84 Morbid obesity E66.01
[2023-08-12 11:17] VITALS: BMI 40.9
== END 2023-08-12 11:32 | disposition home or self-care (01) ==
LOC: HO.HBS 11:12
PROVIDERS: PCP Internal Medicine; Visit Provider Physician Assistant Surgical
DX: E66.01 Morbid (severe) obesity due to excess calories (principal); Z68.41 Body mass index [BMI] 40.0-44.9, adult; Z90.3 Acquired absence of stomach [part of]; Z98.84 Bariatric surgery status
CPT/HCPCS: 99214

== ENCOUNTER → 2023-08-12 11:12 | Outpatient (BNVA) | payer OTHER, SELFPAY | PROVIDERS: PCP Internal Medicine; Visit Provider Physician Assistant Surgical ==

== ENCOUNTER 2023-12-11 07:03 | Outpatient (REF) | payer OTHER, MEDICAID, SELFPAY ==
[2023-12-11 07:19] LABS: MANUAL DIFF FLAG NO
[2023-12-11 07:46] LABS: Basophils Percent Auto 0.3 % (0-2); Eosinophils Absolute Auto 0.1 X10*3/uL (0.0-0.4); Eosinophils Percent Auto 1.7 % (0-4); Hematocrit 39.8 % (37.0-47.0); Hemoglobin 13.2 g/dl (12.0-16.0); Imm Gran Abs Auto 0.02 X10*3/uL (0.00-0.03); Imm Gran Pct Auto 0.3 % (0.0-0.4); Lymphocytes Absolute Auto 2.4 X10*3/uL (1.2-4.9); Lymphocytes Percent Auto 35.7 % (20-40); Mean Corpuscular HGB Conc 33.2 g/dl (31.0-35.0); Mean Corpuscular Hemoglobin 31.8 pg (27.0-33.0); Mean Corpuscular Volume 95.9 fL (80.0-98.0); Mean Platelet Volume 11.4 fL (9.4-12.3); Monocytes Absolute Auto 0.7 X10*3/uL (0.1-1.2); Monocytes Percent Auto 10.3 % (2-11); Neutrophils Absolute Auto 3.4 x10*3/uL (2.0-8.3); Neutrophils Percent Auto 51.7 % (45-73); Platelet Count 281 X10*3/uL (160-400); Red Blood Count 4.15 X10*6/uL (4.20-5.50); Red Cell Distribution Width 13.3 % (11.0-16.0); White Blood Count 6.6 X10*3/uL (4.8-10.8)
[2023-12-11 08:01] LABS: Estimated Average Glucose 97 mg/dL
[2023-12-11 08:09] LABS: Alanine Aminotransferase 10 U/L (0-31); Albumin Level 3.9 g/dL (3.5-5.0); Alkaline Phosphatase 51 U/L (39-117); Anion Gap 10 (12-20); Aspartate Amino Transferase 13 U/L (5-31); Bilirubin Total 0.7 mg/dL (0.0-1.0); Blood Urea Nitrogen 16 mg/dL (9-16); C Reactive Protein 0.17 mg/dL (< or = 0.50); Calcium 10.2 mg/dL (8.4-10.2); Carbon Dioxide 25 mmol/L (22-29); Chloride 108 mmol/L (96-108); Cholesterol 159 mg/dL (<200); Estimated Glomerular Filt Rate > 60; Glucose Random 92 mg/dL (60-115); HDL Cholesterol 60 mg/dL (>40); Iron 123 mcg/dL (30-160); LDL Cholesterol Calculated 86 mg/dL (<100); Percent Iron Saturation 40 % (15-50); Sodium 139 mmol/L (135-145); Total Iron Binding Capacity 305 mcg/dL (228-428); Total Protein 7.4 g/dL (6.5-8.0); Triglycerides 65 mg/dL (<150); Unsaturated Iron Binding 182 ug/dL
[2023-12-11 08:31] LABS: Ferritin 123 ng/mL (10-250); Insulin 4 uU/mL (2-29); TSH reflex Free T4 1.73 uIU/mL (0.32-4.0); Vitamin D 25-OH Total 22.5 ng/mL (>30)
[2023-12-11 08:34] LABS: Folate 10.6 ng/mL (> or = 4.0); Vitamin B12 562 pg/mL (200-900)
[2023-12-15 04:16] LABS: Vitamin A 44 mcg/dL (38-98)
[2023-12-16 02:58] LABS: Zinc 66 mcg/dL (60-130)
[2023-12-18 15:27] LABS: Vitamin B1 9 nmol/L (8-30)
== END 2023-12-11 07:04 | disposition home or self-care (01) ==
LOC: HO.LAB 07:03
PROVIDERS: PCP Internal Medicine; Visit Provider Physician Assistant Surgical
DX: Z98.84 Bariatric surgery status (principal); Z13.1 Encounter for screening for diabetes mellitus; Z13.89 Encounter for screening for other disorder
CPT/HCPCS: 36415; 80053; 80061; 82306; 82607; 82728; 82746; 83036; 83525; 83540; 84425; 84443; 84590; 84630; 85025; 86140

== ENCOUNTER 2024-03-15 08:54 | Outpatient (AMB) | payer OTHER, MEDICAID, SELFPAY ==
--- NOTE | 2024-03-15 08:56 | A.OFFVIS_ITS ---
VS Expanded 03/15/24 09:03 BP 129/63 Blood Pressure Location Rt brachial Blood Pressure Position Sitting Pulse 71 Pulse Source Pulse Oximeter Temp 96.7 F L Temperature Source Temporal Artery Scan Pulse Oximetry 95 Oxygen Delivery Method Room Air Height 5 ft 2 in Weight 216 lb 3.2 oz BMI 39.5 Body Fat % 40.5 Body Fat Mass 87.6 Fat Free Mass 128.6 Visceral Fat Rating 12.0 Body Water % 42.4 Body Water Mass 91.8 Muscle Mass/Score 122.2 Basal Metabolic Rate/Score 1,773 Intake Visit Reasons: (ov) PO LSG 02/19/23 Allergies azithromycin [From Zithromax Z-Hugh] Adverse Reaction (Intermediate, Verified 03/15/24 09:06) Gastrointestinal Upset Medication List - Last Reconciled 03/15/24 by JENSEN Grace budesonide-formoterol 80-4.5 mcg/actuation (Symbicort) 2 puffs inhalation Q12H cetirizine (Zyrtec) 10 mg PO DAILY PRN cholecalciferol (vitamin D3) 50 mcg PO DAILY clotrimazole 1% 1 appl topical BID fluticasone propionate 50 mcg/actuation (Flonase Allergy Relief) 1 spray intranasal DAILY PRN montelukast (Singulair) 10 mg PO DAILY HPI Comments Details: This?is a?48?yo female who is s/p LSG 02/19/2023. Presents for 1 year post op visit. Weight at last visit on 08/12/2023 was 223.5 pounds with a BMI of 40.9, weight today is 216.2 pounds, representing a 7.3 pound weight loss with a BMI today of 39.6.? No complaints of nausea, emesis, abdominal pain or reflux, or constipation. Pt feels stuck since last OV. I could do better. Present meal plan includes: 2 premier shakes - powder with fairlife milk also having 1 meal, mostly protein and a little of vegetables / salad flintstones vitamins still has one shake per day- Premier premade tuna or hard boiled eggs or lunch meats, low carb tortilla dinner is chicken/pork has a lot of low fat cottage cheese, some salads but many vegetables don't sit well knows she does not get enough protein Exercise : has a gazelle cardio machine, plus some weights I do not exercise like I'm supposed to , walks often does not go to the gym for financial reasons, lacks motivation to do it at home Pt reports some painful rashes of skin fold of abdomen. Sometimes areas open up. Also had started experiencing rashes and skin irritation of inner thighs near knee crease. [facility] Medical History Arthritis Binge-eating disorder, mild Asthma Steatosis, liver Incisional hernia Splenosis Binge-eating disorder, mild Surgical History Hx of laparoscopic partial gastrectomy S/P splenectomy Hx of tear of meniscus of knee joint History of back surgery H/O splenectomy History of delivery Family History Father Cancer Paternal Grandmother Diabetes Social History Household Members: Spouse Housing: House Are you a primary child care team lead to a significant other at home: Yes Do you presently have visiting nurse or other home services: No Alcohol intake: current Alcohol intake frequency: holidays/special occasions only Alcohol type: hard liquor Patient Tobacco Use Status: Never used Tobacco Current occupational status: employed Current occupation: retail Physical Exam Vital Signs: Last Vital Signs Temp 96.7 F L 03/15/24 09:03 Pulse 71 03/15/24 09:03 BP 129/63 03/15/24 09:03 Pulse Ox 95 03/15/24 09:03 Oxygen Delivery Method Room Air 03/15/24 09:03 BMI result Body Mass Index 39.5 Assessment & Plan Assessment & Plan (1) S/P laparoscopic sleeve gastrectomy: Code(s): Z98.84 - Bariatric surgery status Category: Medical (2) Morbid obesity: Code(s): E66.01 - Morbid (severe) obesity due to excess calories Category: Medical Plan Pt low on protein and exercise. New plan: 2 premier shake, 1 meal 4f/4f, and can have one cottage cheese. Needs to increase exercise to goal 2000 calories per week, can walk for exercise but needs to increase speed/duration. Labs reviewed, will have drawn again in May, RTC 3 months. Texted pt and encouraged her to reach out for accountability. I spent a total of 30 minutes reviewing/updating records, examining the patient and counseling the patient on weight management as detailed above. Orders: Orders Hemoglobin A1c Today Z98.84 - Bariatric surgery status Lipid Panel Today Z98.84 - Bariatric surgery status IRON PROFILE Today Z98.84 - Bariatric surgery status TSH reflex Free T4 Today Z98.84 - Bariatric surgery status Vitamin D 25-OH Total Today Z98.84 - Bariatric surgery status Insulin Today Z98.84 - Bariatric surgery status Complete Blood Count Auto Diff Today Z98.84 - Bariatric surgery status Comprehensive Met. Panel Today Z98.84 - Bariatric surgery status Vitamin B12 and Folate Today Z98.84 - Bariatric surgery status Zinc Today Z98.84 - Bariatric surgery status C Reactive Protein Today Z98.84 - Bariatric surgery status Vitamin B1 Today Z98.84 - Bariatric surgery status Vitamin A Today Z98.84 - Bariatric surgery status Ferritin Today Z98.84 - Bariatric surgery status
[2024-03-15 09:03] VITALS: BP 129/63; PULSE 71; TEMP 35.9; O2SAT 95; BMI 39.5
== END 2024-03-15 09:45 | disposition home or self-care (01) ==
PROVIDERS: PCP Internal Medicine; Visit Provider Physician Assistant Surgical
DX: E66.01 Morbid (severe) obesity due to excess calories (principal); Z68.39 Body mass index [BMI] 39.0-39.9, adult; Z90.3 Acquired absence of stomach [part of]; Z98.84 Bariatric surgery status
CPT/HCPCS: 99214

== ENCOUNTER → 2024-03-15 08:54 | Outpatient (BNVA) | payer OTHER, MEDICAID, SELFPAY | PROVIDERS: PCP Internal Medicine; Visit Provider Physician Assistant Surgical ==

== ENCOUNTER 2024-06-24 11:12 | Outpatient (AMB) | payer OTHER, MEDICAID, SELFPAY ==
--- NOTE | 2024-06-24 11:06 | A.OFFVIS_ITS ---
VS Expanded 06/24/24 11:13 Height 5 ft 2 in Weight 220 lb BMI 40.2 Intake Visit Reasons: (TV) PO LSG 02/19/23 Allergies azithromycin [From Zithromax Z-Hugh] Adverse Reaction (Intermediate, Verified 03/15/24 09:06) Gastrointestinal Upset Medication List - Last Reconciled 06/24/24 by JENSEN Grace budesonide-formoterol 80-4.5 mcg/actuation (Symbicort) 2 puffs inhalation Q12H cetirizine (Zyrtec) 10 mg PO DAILY PRN cholecalciferol (vitamin D3) 50 mcg PO DAILY clotrimazole 1% 1 appl topical BID fluticasone propionate 50 mcg/actuation (Flonase Allergy Relief) 1 spray intranasal DAILY PRN montelukast (Singulair) 10 mg PO DAILY HPI Comments Details: This?is a?48?yo female who is s/p LSG 02/19/2023. Presents for 16 month post op visit. Weight gain of 3.8lbs since last OV 3mo ago.? No complaints of nausea, emesis, abdominal pain or reflux, or constipation. I'm in a funk, it's all in my own head. Pt would like to meet with . Plans to reset now that the holidays are ending. Was passed over for a promotion which was difficult. Present meal plan includes: 2 premier shake, 1 meal 4f/4f, and can have one cottage cheese- given at last visit Exercise routine includes: has been inconsistent has a PPL[employer]lle cardio machine, plus some weights PFSH Medical History Arthritis Binge-eating disorder, mild Asthma Steatosis, liver Incisional hernia Splenosis Binge-eating disorder, mild Surgical History Hx of laparoscopic partial gastrectomy S/P splenectomy Hx of tear of meniscus of knee joint History of back surgery H/O splenectomy History of delivery Family History Father Cancer Paternal Grandmother Diabetes Social History Household Members: Spouse Housing: House Are you a primary clinical manager home care to a significant other at home: Yes Do you presently have visiting nurse or other home services: No Alcohol intake: current Alcohol intake frequency: holidays/special occasions only Alcohol type: hard liquor Patient Tobacco Use Status: Never used Tobacco Current occupational status: employed Current occupation: retail Telehealth Telehealth Telehealth Platform: Telephone Location of provider rendering services: other Location of patient: address on file Patient Identification confirmed using: Name, : Yes Telehealth method: voice only Patient verbally consented to treatment: Yes Patient verbally consented to billing insurance company: Yes Patient informed of any privacy concerns related to visit: Yes Minutes spent on Phone/Video with Pt.: 15 Assessment & Plan Assessment & Plan (1) S/P laparoscopic sleeve gastrectomy: Code(s): Z98.84 - Bariatric surgery status Category: Surgical (2) Morbid obesity: Code(s): E66.01 - Morbid (severe) obesity due to excess calories Category: Medical Plan Knows she needs to get back to planning and meal prepping, wants to meet with Anabel. Will schedule. Pt will have labs done. RTC 3-4 months. I spent a total of 30 minutes reviewing/updating records, examining the patient and counseling the patient on weight management as detailed above.
[2024-06-24 11:13] VITALS: BMI 40.2
== END 2024-06-24 11:27 | disposition home or self-care (01) ==
LOC: HO.HBS 11:12
PROVIDERS: PCP Internal Medicine; Visit Provider Physician Assistant Surgical
DX: E66.813 Obesity, class 3 (principal); Z68.41 Body mass index [BMI] 40.0-44.9, adult; Z90.3 Acquired absence of stomach [part of]; Z98.84 Bariatric surgery status
CPT/HCPCS: 99214

== ENCOUNTER → 2024-06-24 11:12 | Outpatient (BNVA) | payer OTHER, MEDICAID, SELFPAY | PROVIDERS: PCP Internal Medicine; Visit Provider Physician Assistant Surgical ==

== ENCOUNTER 2024-07-13 09:50 | Outpatient (REF) | payer OTHER, MEDICAID, SELFPAY ==
[2024-07-13 10:15] LABS: MANUAL DIFF FLAG NO
[2024-07-13 10:18] LABS: Basophils Percent Auto 0.2 % (0-2); Eosinophils Absolute Auto 0.1 X10*3/uL (0.0-0.4); Hematocrit 38.9 % (37.0-47.0); Hemoglobin 13.1 g/dl (12.0-16.0); Imm Gran Abs Auto 0.02 X10*3/uL (0.00-0.03); Imm Gran Pct Auto 0.3 % (0.0-0.4); Lymphocytes Absolute Auto 2.5 X10*3/uL (1.2-4.9); Lymphocytes Percent Auto 40.6 % (20-40); Mean Corpuscular HGB Conc 33.7 g/dl (31.0-35.0); Mean Corpuscular Hemoglobin 31.6 pg (27.0-33.0); Mean Corpuscular Volume 93.7 fL (80.0-98.0); Mean Platelet Volume 11.2 fL (9.4-12.3); Monocytes Absolute Auto 0.7 X10*3/uL (0.1-1.2); Monocytes Percent Auto 10.9 % (2-11); Neutrophils Absolute Auto 2.8 x10*3/uL (2.0-8.3); Platelet Count 266 X10*3/uL (160-400); Red Blood Count 4.15 X10*6/uL (4.20-5.50); Red Cell Distribution Width 13.1 % (11.0-16.0); White Blood Count 6.1 X10*3/uL (4.8-10.8)
[2024-07-13 10:43] LABS: Estimated Average Glucose 97 mg/dL; Hemoglobin A1C 106.8495 umol/L; Total Hemoglobin (HGBA1C) 3406.1216 umol/L
[2024-07-13 11:12] LABS: Folate 14.8 ng/mL (> or = 4.0); Vitamin B12 655 pg/mL (200-900)
[2024-07-13 11:22] LABS: Alanine Aminotransferase 10 U/L (0-31); Albumin Level 3.8 g/dL (3.5-5.0); Anion Gap 11 (12-20); Aspartate Amino Transferase 19 U/L (5-31); Bilirubin Total 0.6 mg/dL (0.0-1.0); Blood Urea Nitrogen 13 mg/dL (9-16); C Reactive Protein 0.33 mg/dL (< or = 0.50); Calcium 9.9 mg/dL (8.4-10.2); Carbon Dioxide 24 mmol/L (22-29); Chloride 108 mmol/L (96-108); Cholesterol 172 mg/dL (<200); Estimated Glomerular Filt Rate > 60; Glucose Random 97 mg/dL (60-115); HDL Cholesterol 63 mg/dL (>40); Iron 118 mcg/dL (30-160); LDL Cholesterol Calculated 98 mg/dL (<100); Percent Iron Saturation 45 % (15-50); Potassium 4.2 mmol/L (3.3-5.1); Sodium 139 mmol/L (135-145); Total Iron Binding Capacity 260 mcg/dL (228-428); Total Protein 7.4 g/dL (6.5-8.0); Triglycerides 57 mg/dL (<150); Unsaturated Iron Binding 142 ug/dL
[2024-07-13 11:32] LABS: Alkaline Phosphatase 49 U/L (39-117)
[2024-07-13 11:36] LABS: Ferritin 138 ng/mL (10-250); Insulin 4 uU/mL (2-29); TSH reflex Free T4 2.02 uIU/mL (0.32-4.0); Vitamin D 25-OH Total 21.5 ng/mL (>30)
[2024-07-17 01:44] LABS: Zinc 70 mcg/dL (60-130)
[2024-07-17 02:54] LABS: Vitamin A 31 mcg/dL (38-98)
[2024-07-19 13:43] LABS: Vitamin B1 13 nmol/L (8-30)
== END 2024-07-13 09:51 | disposition home or self-care (01) ==
LOC: HO.LAB 09:50
PROVIDERS: PCP Internal Medicine; Visit Provider Physician Assistant Surgical
DX: Z98.84 Bariatric surgery status (principal); Z13.1 Encounter for screening for diabetes mellitus
CPT/HCPCS: 36415; 80053; 80061; 82306; 82607; 82728; 82746; 83036; 83525; 83540; 84425; 84443; 84590; 84630; 85025; 86140

== ENCOUNTER → 2024-07-19 11:25 | Outpatient (AMB) | payer OTHER, SELFPAY ==
--- NOTE | 2024-07-19 11:00 | A.OFFWM_ITS ---
Intake Intake Visit Reasons: (TV) PO LSG 02/19/23 Allergies azithromycin [From Zithromax Z-Hugh] Adverse Reaction (Intermediate, Verified 03/15/24 09:06) Gastrointestinal Upset PFSH Medical History Arthritis Binge-eating disorder, mild Asthma Steatosis, liver Incisional hernia Splenosis Binge-eating disorder, mild Surgical History Hx of laparoscopic partial gastrectomy S/P splenectomy Hx of tear of meniscus of knee joint History of back surgery H/O splenectomy History of delivery Family History Father Cancer Paternal Grandmother Diabetes Social History Household Members: Spouse Housing: House Are you a primary child care group leader to a significant other at home: Yes Do you presently have visiting nurse or other home services: No Alcohol intake: current Alcohol intake frequency: holidays/special occasions only Alcohol type: hard liquor Patient Tobacco Use Status: Never used Tobacco Current occupational status: employed Current occupation: retail Behavioral Health Assessment Weight Management Therapy Therapy Notes Details The patient (PT) is a 48-year-old female presenting for a behavioral health appointment following a referral from the P to address increased stress, weight-loss challenges, and family issues. PT reports that she has fallen off track with her goals and is seeking support to improve accountability for weight loss, stay on track, and manage setbacks without resorting to self-sabotage. She also expressed a desire for assistance with stress management and improving sleep. During today?s session, we focused on conducting an assessment and identifying specific goals to better support PT in achieving her desired outcomes. She will follow up with this provider in two weeks. Presenting Concerns Referral Source WMP Provider Reason for referral Weight-gain PO. Precipitating Event Increased stress and family issues. Living Situation Current Living Situation Own At risk of losing current housing? No Satisfied with current living situation? No Comments Pt lives with her and step daughters, and son. Food/Weight/Diet Expectations of change PT has surgery in January/2023. She has lost 95Lbs since starting the program in October/2022 PT's goal: wants to lose more weight. Ideally: 166Lbs (50 Lbs less) Non-scale victories: - Able to cross her legs comfortably. - Wear shorts - back at Exercising without feeling out of breath History/Relationship with food PT reports she loves to eat, cook, and try new things. PT reports not meal-prepping impacts her food choices/decisions, she is aware she needs to prepare Example of meals: Breakfast: coffee with protein powder Lunch: 2 HB or Tuna. PM snack: protein bar. Dinner: protein and veggies/salad Snacks: quest chips or a second protein bar History/Relationship with weight Heaviest: 315Lbs Current weight: 216Lbs History/Relationship with dieting Not a particular diet after surgery. Binge Eating Do you frequently eat large amounts of food in short periods of time, not feeling physically hungry? No Do you feel out of control when you eat a large amount of food in a short period of time? No Do you eat large amounts of food rapidly and typically alone? No Night Eating Do you wake up at least once during the night to eat? No If you wake up in the night, do you find that it is necessary to eat something in order to fall back asleep? No Do you have little or no appetite in the morning and feel very hungry in the evening, often overeating between dinner and when you go to bed? No Social History Family history and relationship PT is happily re- 5 years ago She has an 18 y/o son. The has 2 children. PT has 2 brothers. 1 is currently on life support. Parental/Familial supervisor tellers obligations 3 children live with them. Developmental history and status no issues Social support , Family. 2 groups of best friends, mother, boss, children Community support [facility], [facility] Scientologist/Spirituality Muslim. Cultural/Ethnic information Legal Involvement and History Current or historical involvement with the legal system? None Education Highest grade completed 11th Preferred learning style Learn by doing Currently enrolled in educational program? No Interested in further educational program? No Educational Interests/Skills PT bartends a couple days a week. 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 ) Wants help to find employment? No Financial Situation Describe current financial situation Comfortable Service Service? No Mental Health and Addiction Treatment Current/Past substance abuse? No Comments Alcohol: 1x week. When going out with . Does about 4 drinks (Vodka with crystal light/water flavor). Cigarettes/Tobacco: None Cannabis/Edibles: Edibles, nothing in the last several months. 2 times at year or less. Current/Past addictive behavior concerns? No Psychiatric history HAs received support at this program in the past. Never in another type of treatment. PT denies ever been in crisis or inpatient for mental health. There is no h istory and/or current concern about SI/Sa and self-harm or other harm. Medical and Physical Health Summary Additional Medical History not covered in history None Sexual History concerns None Physical exam in the last year? Yes Pain Screening Current pain? No Pain in the last few months? No Medications Is the patient compliant with medications? Yes Does the patient have Hernandez Guardian in place? Not applicable Does the patient use complimentary health approaches? No Trauma/Abuse History History of trauma? Yes Questionnaires PHQ-9 Over the last 2 weeks, how often have you been bothered by any of the following problems? 1. Little interest or pleasure in doing things: not at all 2. Feeling down, depressed, or hopeless: not at all 3. Trouble falling or staying asleep, or sleeping too much: more than half the days (falling or staying asleep due to stress started before the holidays ) 4. Feeling tired or having little energy: more than half the days 5. Poor appetite or overeating: more than half the days (increased appetite since sleeping issues started. ) 6. Feeling bad about yourself - or that you are a failure or have let yourself or your family down: not at all 7. Trouble concentrating on things, such as reading the newspaper or watching television: several days 8. Moving or speaking so slowly that other people could have noticed. Or the opposite - being so fidgety or restless that you have been moving around a lot more than usual: several days (Little bit fidgety or anxious.) 9. Thoughts that you would be better off or of hurting yourself in some way: not at all Total score: 8 Depression Screening Interpretation: Positive Depression Screening Done: Yes 90027 - PHQ-9 Billing: Yes Source: Developed by Drs. Hola Leyva, Savanah BArpit Amin and colleagues, with an educational lisa from [employer]. Assessment & Plan Assessment & Plan (1) Adjustment disorder, unspecified: Code(s): F43.20 - Adjustment disorder, unspecified Plan PT will receive support with the following * Improve Accountability for Weight Loss: * Develop strategies to enhance PT?s accountability for weight loss goals. * Create a personalized plan for tracking progress, including specific action steps and check-ins. * Identify potential obstacles and develop coping strategies to manage setbacks and avoid self-sabotage. * Manage Stress Effectively: * Explore and implement stress-reduction techniques such as mindfulness, relaxation exercises, or time management strategies. * Identify and address matthews stressors related to family and other life areas. * Develop healthy coping mechanisms for stress management to prevent emotional overwhelm. * Improve Sleep Quality: * Assess and address any factors impacting PT?s sleep, such as anxiety, stress, or sleep hygiene practices. * Implement a consistent bedtime routine and strategies to promote better sleep. * Track sleep patterns and evaluate progress over time. * Build Resilience to Setbacks: * Develop a mindset that views setbacks as opportunities for growth rather than failure. * Practice self-compassion and self-forgiveness when goals are not met, rather than engaging in self-sabotage. * Increase PT?s ability to get back on track after setbacks and maintain motivation toward long-term goals. These goals will be reviewed and adjusted as needed during future sessions to ensure continued progress and support Next alan: in 2 weeks. 08/02/2024 at 9am, in person. Telehealth Telehealth Telehealth Platform: [facility] Location of provider rendering services: other Location of patient: address on file Patient Identification confirmed using: Name, : Yes Telehealth method: voice only Patient verbally consented to treatment: Yes Patient verbally consented to billing insurance company: Yes Patient informed of any privacy concerns related to visit: Yes Minutes spent on Phone/Video with Pt.: 55 Coding Level of Care Code New Pt Tele Psy Diag Eval (99203) Patient Type New Diagnoses Adjustment disorder, unspecified F43.20 Additional Codes PHQ-9 - 31986 - PHQ-9 Billing: Yes ([id number]) Time Spent (min) 55
== END ==
PROVIDERS: PCP Internal Medicine; Visit Provider Counselor Mental Health
DX: F43.20 Adjustment disorder, unspecified (principal)
CPT/HCPCS: 90791

== ENCOUNTER 2024-09-21 10:27 | Outpatient (AMB) | payer OTHER, MEDICAID, SELFPAY ==
--- NOTE | 2024-09-21 10:33 | MHC.OFFVISWM ---
VS Expanded 09/21/24 10:36 BP 128/63 Blood Pressure Location Lt brachial Blood Pressure Position Sitting Pulse 69 Pulse Source Pulse Oximeter Height 5 ft 2 in Weight 219 lb 3.2 oz BMI 40.1 Body Fat % 40.2 Body Fat Mass 88.2 Fat Free Mass 131.0 Visceral Fat Rating 12.0 Body Water % 42.6 Body Water Mass 93.2 Muscle Mass/Score 124.4 Basal Metabolic Rate/Score 1,804 Intake Visit Reasons: (OV) PO LSG 02/19/23 Allergies azithromycin [From Zithromax Z-Hugh] Adverse Reaction (Intermediate, Verified 09/21/24 10:34) Gastrointestinal Upset Medication List - Last Reconciled 09/21/24 by JENSEN Grace budesonide-formoterol 80-4.5 mcg/actuation (Symbicort) 2 puffs inhalation Q12H cetirizine mg PO DAILY cholecalciferol (vitamin D3) 125 mcg PO DAILY citalopram mg PO DAILY clotrimazole 1% 1 appl topical BID fluticasone propionate 50 mcg/actuation (Flonase Allergy Relief) 1 spray intranasal DAILY PRN montelukast (Singulair) 10 mg PO DAILY HPI Comments Details: This?is a?48?yo female who is s/p LSG 02/19/2023. Presents for 19 month post op visit. Weight loss of 0.8lbs since last OV 3mo ago.? No complaints of nausea, emesis, abdominal pain or reflux, or constipation. She feels like her body composition is changing for the better. However, weight loss has stalled. Present meal plan includes: 2 premier shake, 1 meal 4f/4f, and can have one cottage cheese- given at last visit Exercise routine includes: has a [employer] cardio machine, plus some weights now going to [facility] Medical History Arthritis Binge-eating disorder, mild Asthma Steatosis, liver Incisional hernia Splenosis Binge-eating disorder, mild Surgical History (Updated 09/21/24 @ 10:35 by DEMI Bolton) History of endometrial ablation Hx of laparoscopic partial gastrectomy S/P splenectomy Hx of tear of meniscus of knee joint History of back surgery H/O splenectomy History of delivery Family History Father Cancer Paternal Grandmother Diabetes Social History Household Members: Spouse Housing: House Are you a primary patient care specialist to a significant other at home: Yes Do you presently have visiting nurse or other home services: No Alcohol intake: current Alcohol intake frequency: holidays/special occasions only Alcohol type: hard liquor Patient Tobacco Use Status: Never used Tobacco Current occupational status: employed Current occupation: [employer] Physical Exam Vital Signs: Last Vital Signs Pulse 69 09/21/24 10:36 BP 128/63 09/21/24 10:36 BMI result Body Mass Index 40.1 Assessment & Plan Assessment & Plan (1) Morbid obesity: Code(s): E66.01 - Morbid (severe) obesity due to excess calories Category: Medical (2) S/P laparoscopic sleeve gastrectomy: Code(s): Z98.84 - Bariatric surgery status Category: Surgical Plan Pt is interested in starting GLP1. Reviewed contraindications, discussed dosing. Discussed need for adequate protein intake while on GLP1s as well as frequent communication with our office. Pt will check in with me weekly and is aware that subsequent Rx will be dependent on frequent communication. Labs reviewed, vit supplements ordered. RTC 3 mo. Medications: New Zepbound (tirzepatide (weight loss)) for 4 weeks 2.5 mg (0.5 mL) subcut QWEEK 2 mL 0RF NS vitamin A palmitate 10,000 units PO DAILY 90 caps 3RF cholecalciferol (vitamin D3) 50 mcg PO DAILY 90 caps 3RF
[2024-09-21 10:36] VITALS: BP 128/63; PULSE 69; BMI 40.1
== END 2024-09-21 11:45 | disposition home or self-care (01) ==
LOC: HO.HBS 10:28
PROVIDERS: PCP Internal Medicine; Visit Provider Physician Assistant Surgical
DX: E66.813 Obesity, class 3 (principal); Z68.41 Body mass index [BMI] 40.0-44.9, adult; Z90.3 Acquired absence of stomach [part of]; Z98.84 Bariatric surgery status
CPT/HCPCS: 99214

== ENCOUNTER 2024-11-30 10:26 | Outpatient (AMB) | payer OTHER, MEDICAID, SELFPAY ==
--- NOTE | 2024-11-30 10:28 | MHC.OFFVISWM ---
VS Expanded 11/30/24 10:37 BP 121/59 L Blood Pressure Location Rt brachial Blood Pressure Position Sitting Pulse 62 Pulse Source Pulse Oximeter Temp 98.5 F Temperature Source Temporal Artery Scan Pulse Oximetry 96 Oxygen Delivery Method Room Air Height 5 ft 2 in Weight 218 lb 12.8 oz BMI 40.0 Body Fat % 39.9 Body Fat Mass 87.4 Fat Free Mass 131.4 Visceral Fat Rating 12.0 Body Water % 42.7 Body Water Mass 93.4 Muscle Mass/Score 124.8 Basal Metabolic Rate/Score 2,965 Intake Visit Reasons: (OV) PO LSG 02/19/23 Allergies azithromycin [From Zithromax Z-Hugh] Adverse Reaction (Intermediate, Verified 11/30/24 10:32) Gastrointestinal Upset Medication List - Last Reconciled 11/30/24 by JENSEN Grace cetirizine mg PO DAILY cholecalciferol (vitamin D3) 50 mcg PO DAILY clotrimazole 1% 1 appl topical BID fluticasone propionate 50 mcg/actuation (Flonase Allergy Relief) 1 spray intranasal DAILY PRN vitamin A palmitate 10,000 units PO DAILY HPI Comments Details: This?is a?49?yo F who is s/p LSG 02/19/2023. Presents for 1yr 9mo post op visit. Weight stable since last OV 3mo ago. No complaints of nausea, emesis, abdominal pain or reflux, or constipation. Was denied Zepbound, interested in phentermine. Present meal plan includes: 2 premier shake, 1 meal 4f/4f, and can have one cottage cheese- given at last visit Exercise routine includes: has a [employer] cardio machine, plus some weights now going to [facility] Medical History Arthritis Binge-eating disorder, mild Asthma Steatosis, liver Incisional hernia Splenosis Binge-eating disorder, mild Surgical History History of endometrial ablation Hx of laparoscopic partial gastrectomy S/P splenectomy Hx of tear of meniscus of knee joint History of back surgery H/O splenectomy History of delivery Family History Father Cancer Paternal Grandmother Diabetes Social History Household Members: Spouse Housing: House Are you a primary child day care teacher to a significant other at home: Yes Do you presently have visiting nurse or other home services: No Alcohol intake: current Alcohol intake frequency: holidays/special occasions only Alcohol type: hard liquor Patient Tobacco Use Status: Never used Tobacco Current occupational status: employed Current occupation: retail Assessment & Plan Assessment & Plan (1) S/P laparoscopic sleeve gastrectomy: Code(s): Z98.84 - Bariatric surgery status Category: Surgical (2) Morbid obesity: Code(s): E66.01 - Morbid (severe) obesity due to excess calories Category: Medical Plan Pt interested in starting phentermine. Offered Zepbound self pay option, pt declined. Reviewed daily BP checks, send via text. Continue high protein meal plan and exercise to goal. If no response in 3mo can reconsider Zepbound. RTC 3mo. Medications: New phentermine must administer 2 hours after breakfast 30 mg PO DAILY 30 caps 0RF
[2024-11-30 10:37] VITALS: BP 121/59; PULSE 62; TEMP 36.9; O2SAT 96; BMI 40.0
--- OUTSIDE RECORDS SUMMARY | 2024-11-30 12:02 | XMS_ITS | Clinical Summary ---
Author Organization Formerly [facility] Address [address] [place] [address] Care Team Providers Care Automotive Machinist Name Role Phone Unavailable Primary Care Provider Unavailabl e Allergies No known active allergies Medications No known medications Social History Tobacco Use Types Packs/Day Years Used Date Smoking Tobacco: Never Smokeless Tobacco: Never Alcohol Use Standard Drinks/Week Comments Yes 0 (1 standard drink = 0.6 oz pur e alcohol) occassional Comments No Sex and Gender Information Value Date Recorded Sex Assigned at Not on file Legal Sex Female 6:19 PM EST Gender Identity Not on file Sexual Orientation Not on file Last Filed Vital Signs Vital Sign Reading Time Taken Comments Blood Pressure 160/88 02/20/2019 2:11 AM EDT Pulse 73 02/20/2019 2:11 AM EDT Temperature 36.5 ??C (97.7 ??F) 02/20/2019 1:27 AM ED T Respiratory Rate 16 02/20/2019 2:11 AM EDT Oxygen Saturation 95% 02/20/2019 2:11 AM EDT Inhaled Oxygen Concentration - - Weight - - Height 158.5 cm (5' 2.4 ) 02/20/2019 1:27 AM EDT Body Mass Index - - Plan of Treatment Health Maintenance Due Date Last Done Comments Hepatitis C Virus Screening 1975 HIV Screening 09/14/1988 DTaP/Tdap/Td Vaccines (1 - Tdap) 09/14/1994 Hepatitis B Vaccines (1 of 3 - 19+ 3-dose series) 09/14/1994 Pap Smear (Ages 21-65) 09/14/1996 Mammogram 2015 Colonoscopy 09/14/2020 COVID-19 Vaccine ( - 2023-2 5 season) 2024 Influenza Vaccine 01/28/2025 Pneumococcal Vaccine: Pediat antonio (0-5 Years) and At-Risk Patients (6 to 49 Years) Aged Out No longer eligible b ased on patient's age to complete this topic Insurance
== END 2024-11-30 11:03 | disposition home or self-care (01) ==
LOC: HO.HBS 10:27
PROVIDERS: PCP Internal Medicine; Visit Provider Physician Assistant Surgical
DX: E66.01 Morbid (severe) obesity due to excess calories (principal); Z68.41 Body mass index [BMI] 40.0-44.9, adult; Z90.3 Acquired absence of stomach [part of]; Z98.84 Bariatric surgery status
CPT/HCPCS: 99214

== ENCOUNTER → 2024-11-30 10:26 | Outpatient (BNVA) | payer OTHER, MEDICAID, SELFPAY | PROVIDERS: PCP Internal Medicine; Visit Provider Physician Assistant Surgical ==

== ENCOUNTER 2025-03-01 11:27 | Outpatient (AMB) | payer OTHER, MEDICAID, SELFPAY ==
--- NOTE | 2025-03-01 11:29 | MHC.OFFVISWM ---
VS Expanded 03/01/25 11:36 BP 120/56 L Blood Pressure Location Rt brachial Blood Pressure Position Sitting Pulse 56 Pulse Source Pulse Oximeter Temp 95.8 F L Temperature Source Temporal Artery Scan Pulse Oximetry 98 Oxygen Delivery Method Room Air Height 5 ft 2 in Weight 219 lb 12.8 oz BMI 40.2 Body Fat % 39.8 Body Fat Mass 87.4 Fat Free Mass 132.2 Visceral Fat Rating 12.0 Body Water % 43.0 Body Water Mass 94.4 Muscle Mass/Score 125.6 Basal Metabolic Rate/Score 1,820 Intake Visit Reasons: (OV) PO LSG 02/19/23 Allergies azithromycin (From Zithromax Z-Hugh) Adverse Reaction (Intermediate, Verified 03/01/25 11:32) Gastrointestinal Upset Medication List - Last Reconciled 03/01/25 by JENSEN Grace cetirizine mg PO DAILY cholecalciferol (vitamin D3) 50 mcg PO DAILY clotrimazole 1% 1 appl topical BID fluticasone propionate 50 mcg/actuation (Flonase Allergy Relief) 1 spray intranasal DAILY PRN phentermine 30 mg PO DAILY vitamin A palmitate 10,000 units PO DAILY HPI Comments Details: This?is a?49?yo F who is s/p LSG 02/19/2023. Presents for 2y post op visit. Weight stable since last OV 3mo ago. No complaints of nausea, emesis, abdominal pain or reflux, or constipation. Has been on phentermine, but no change in weight. Has been checking BP, well controlled. 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 Present meal plan includes: 2 premier shake, 1 meal 4f/4f, and can have one cottage cheese- given at previous visit Exercise routine includes: has a [employer] cardio machine, plus some weights now going to [facility] Medical History Arthritis Binge-eating disorder, mild Asthma Steatosis, liver Incisional hernia Splenosis Binge-eating disorder, mild Surgical History History of endometrial ablation Hx of laparoscopic partial gastrectomy S/P splenectomy Hx of tear of meniscus of knee joint History of back surgery H/O splenectomy History of delivery Family History Father Cancer Paternal Grandmother Diabetes Social History (Updated 11/30/24 @ 10:36 by Rosanna Lindsey CMA) Household Members: Spouse Housing: House Are you a primary healthcare network consultant to a significant other at home: Yes Do you presently have visiting nurse or other home services: No Alcohol intake: current Alcohol intake frequency: holidays/special occasions only Alcohol type: hard liquor Patient Tobacco Use Status: Never used Tobacco Current occupational status: employed Current occupation: retail Physical Exam Vital Signs: Last Vital Signs Temp 95.8 F L 03/01/25 11:36 Pulse 56 03/01/25 11:36 BP 120/56 L 03/01/25 11:36 Pulse Ox 98 03/01/25 11:36 Oxygen Delivery Method Room Air 03/01/25 11:36 BMI result Body Mass Index 40.2 Assessment & Plan Assessment & Plan (1) S/P laparoscopic sleeve gastrectomy: Code(s): Z98.84 - Bariatric surgery status Category: Surgical (2) Morbid obesity: Code(s): E66.01 - Morbid (severe) obesity due to excess calories Category: Medical Plan Pt is interested in starting GLP1. She has not been successful with weight loss despite 3 months on phentermine. Reviewed contraindications, discussed dosing. Discussed need for adequate protein intake while on GLP1s as well as frequent communication with our office. Pt will check in with me weekly and is aware that subsequent Rx will be dependent on frequent communication. Gave [employer] alan download info. RTC 3mo phone visit. Medications: New tirzepatide (weight loss) (Zepbound) for 4 weeks 2.5 mg (0.5 mL) subcut QWEEK 2 mL 0RF
[2025-03-01 11:36] VITALS: BP 120/56; PULSE 56; TEMP 35.4; O2SAT 98; BMI 40.2
--- OUTSIDE RECORDS SUMMARY | 2025-03-01 13:09 | XMS_ITS | Clinical Summary ---
Author Organization [facility]ly [facility] Address [address] [place] [address] Care Team Providers Care Cigar Sorter Name Role Phone Unavailable Primary Care Provider [...] 73 02/20/2019 2:11 AM EDT Temperature 36.5 C (97.7 F) 02/20/2019 1:27 AM EDT Respiratory Rate 16 02/20/2019 2:11 AM EDT [...]
== END 2025-03-01 12:00 | disposition home or self-care (01) ==
LOC: HO.HBS 11:28
PROVIDERS: PCP Internal Medicine; Visit Provider Physician Assistant Surgical
DX: E66.01 Morbid (severe) obesity due to excess calories (principal); Z68.41 Body mass index [BMI] 40.0-44.9, adult; Z90.3 Acquired absence of stomach [part of]; Z98.84 Bariatric surgery status
CPT/HCPCS: 99213; G2211

== ENCOUNTER 2025-05-30 10:40 | Outpatient (AMB) | payer OTHER, MEDICAID, SELFPAY ==
--- NOTE | 2025-05-30 10:39 | A.OFFVIS_ITS ---
VS Expanded 05/30/25 10:43 Height 5 ft 2 in Weight 217 lb BMI 39.7 Intake Visit Reasons: TV PO LSG 02/19/23 Allergies azithromycin (From Zithromax Z-Hugh) Adverse Reaction (Intermediate, Verified 03/01/25 11:32) Gastrointestinal Upset Medication List - Last Reconciled 05/30/25 by JENSEN Grace cetirizine mg PO DAILY cholecalciferol (vitamin D3) 50 mcg PO DAILY clotrimazole 1% 1 appl topical BID fluticasone propionate 50 mcg/actuation (Flonase Allergy Relief) 1 spray intranasal DAILY PRN phentermine 30 mg PO DAILY vitamin A palmitate 10,000 units PO DAILY HPI Comments Details: This is a 49 yo F who is s/p LSG 02/19/2023. Presents for 2y 3mo post op visit. Weight stable since last OV 3mo ago. No complaints of nausea, emesis, abdominal pain or reflux, or constipation. Tried to get approved for [employer] but not approved. She had started a new job before last visit- work is extremely overwhelming. She notes that she felt she did well on phentermine. Present meal plan includes: 2 premier shake, 1 meal 4f/4f, and can have one cottage cheese- given at previous visit Exercise routine includes: has a [employer] cardio machine, plus some weights now going to [facility] Medical History Arthritis Binge-eating disorder, mild Asthma Steatosis, liver Incisional hernia Splenosis Binge-eating disorder, mild Surgical History History of endometrial ablation Hx of laparoscopic partial gastrectomy S/P splenectomy Hx of tear of meniscus of knee joint History of back surgery H/O splenectomy History of delivery Family History Father Cancer Paternal Grandmother Diabetes Social History (Updated 11/30/24 @ 10:36 by Rosanna Lindsey CMA) Household Members: Spouse Housing: House Are you a primary animal care service worker to a significant other at home: Yes Do you presently have visiting nurse or other home services: No Alcohol intake: current Alcohol intake frequency: holidays/special occasions only Alcohol type: hard liquor Patient Tobacco Use Status: Never used Tobacco Current occupational status: employed Current occupation: retail Telehealth Telehealth Telehealth Platform: Telephone Location of provider rendering services: practice address Location of patient: address on file Patient Identification confirmed using: Name, : Yes Telehealth method: voice only Patient verbally consented to treatment: Yes Patient verbally consented to billing insurance company: Yes Patient informed of any privacy concerns related to visit: Yes Minutes spent on Phone/Video with Pt.: 15 Assessment & Plan Assessment & Plan (1) Morbid obesity: Code(s): E66.01 - Morbid (severe) obesity due to excess calories Category: Medical (2) S/P laparoscopic sleeve gastrectomy: Code(s): Z98.84 - Bariatric surgery status Category: Surgical Plan Pt would like to restart phentermine as she tolerated that well and BP was controlled. She will continue to send me BP measurements daily after restarting. She recognizes that her meal plan and exercise regimen are not ideal and that she needs to focus on those as well. RTC 3mo TV. Medications: Refilled phentermine must administer 2 hours after breakfast 30 mg PO DAILY 30 caps 0RF Discontinued tirzepatide (weight loss) (Zepbound) for 4 weeks Discontinued Reason: Doctor's Order 2.5 mg (0.5 mL) subcut QWEEK 2 mL 0RF
[2025-05-30 10:43] VITALS: BMI 39.7
--- OUTSIDE RECORDS SUMMARY | 2025-05-30 13:34 | XMS_ITS | Clinical Summary ---
Author Organization [facility] Address [address] [place] [address] Care Team Providers Care Drupal Php Developer Name Role Phone Unavailable Primary Care Provider [...] (Ages 21-65) 09/14/1996 Mammogram 2015 Colonoscopy 09/14/2020 Influenza Vaccine 01/28/2025 COVID-19 Vaccine ( - 2023-2 5 season) 2025 Pneumococcal Vaccine: Pediat antonio (0-5 Years) and At-Risk Patients (6 to 49 Years) Aged Out No longer eligible b ased on patient's age to complete this topic Insurance
== END 2025-05-30 10:56 | disposition home or self-care (01) ==
LOC: HO.HBS 10:40
PROVIDERS: PCP Internal Medicine; Visit Provider Physician Assistant Surgical
DX: E66.01 Morbid (severe) obesity due to excess calories (principal); Z98.84 Bariatric surgery status
CPT/HCPCS: 99214; G2211